=== PATIENT | male | born 1980 | race Caucasian/White ===

== ENCOUNTER 2017-06-29 14:49 | Emergency (ER) | payer OTHER ==
[~2017-06-29] VITALS: Ht 180.3 cm; Wt 83.9 kg
[2017-06-29] MEDS ORDERED: ASPIRIN 81 MG CHEW (CHILDREN'S ASA) PO ONE (15:00)
[2017-06-29] MEDS ORDERED: RX-NITROGLYCERIN 0.4 MG TAB BTL 25'S SL PRN (15:00)
[2017-06-29 15:21] LABS: BASOPHILS # (AUTO) 0.1 10^3/uL (0.0-0.1); BASOPHILS % (AUTO) 1 % (0-10); EOSINOPHILS # (AUTO) 0.7 10^3/uL (0.0-0.3); EOSINOPHILS % (AUTO) 8 % (0-10); LYMPHOCYTES # (AUTO) 2.2 X 10^3 (1.0-4.0); LYMPHOCYTES % (AUTO) 26 % (12-44); MEAN CORPUSCULAR HEMOGLOBIN 30 PG (25-34); MEAN CORPUSCULAR HGB CONC 34 G/DL (32-36); MEAN CORPUSCULAR VOLUME 88 FL (80-99); MEAN PLATELET VOLUME 9.7 FL (7.4-10.4); MONOCYTES # (AUTO) 0.6 X 10^3 (0.0-1.0); MONOCYTES % (AUTO) 7 % (0-12); NEUTROPHILS # (AUTO) 4.8 X 10^3 (1.8-7.8); NEUTROPHILS % (AUTO) 57 % (42-75); PLATELET COUNT 268 10^3/uL (130-400); RED BLOOD COUNT 4.96 10^6/uL (4.35-5.85); RED CELL DISTRIBUTION WIDTH 13.8 % (10.0-14.5); WHITE BLOOD COUNT 8.5 10^3/uL (4.3-11.0)
[2017-06-29 15:38] LABS: INR 0.9 (0.8-1.4); PROTHROMBIN TIME PATIENT 12.2 SEC (12.2-14.7)
--- NOTE | 2017-06-29 15:38 | Diagnostic Imaging Report ---
EXAMINATION: Portable upright radiograph of the chest. INDICATION: Chest pain. FINDINGS: The lungs are clear. The heart size is normal. No effusion or pneumothorax. The mediastinum and jessy appear unremarkable. IMPRESSION: Unremarkable exam. Dictated by: Dictated on workstation # [id number]
[2017-06-29 15:45] LABS: ALANINE AMINOTRANSFERASE 49 U/L (0-55); ALBUMIN 4.3 GM/DL (3.2-4.5); AMYLASE 51 U/L (25-125); ANION GAP 7 MMOL/L (5-14); ASPARTATE AMINO TRANSFERASE 25 U/L (5-34); BILIRUBIN,TOTAL 0.6 MG/DL (0.1-1.0); BLOOD UREA NITROGEN 17 MG/DL (7-18); BUN/CREATININE RATIO 15; CALCIUM 9.2 MG/DL (8.5-10.1); CARBON DIOXIDE 26 MMOL/L (21-32); CHLORIDE 107 MMOL/L (98-107); CREATININE SERUM 1.11 MG/DL (0.60-1.30); GFR ESTIMATED > 60; GLUCOSE 89 MG/DL (70-105); LIPASE 24 U/L (8-78); MAGNESIUM 2.1 MG/DL (1.8-2.4); SODIUM 140 MMOL/L (135-145); TOTAL PROTEIN 6.7 GM/DL (6.4-8.2)
[2017-06-29 15:52] LABS: MYOGLOBIN SERUM 60.1 NG/ML (10.0-92.0)
--- NOTE | 2017-06-29 15:52 | ED Chest Pain ---
General Chief Complaint: Chest Pain Stated Complaint: CHEST PAIN Nursing Triage Note: AMB TO ROOM C/O CHEST PAIN FOR 2 WEEKS REPORTS AT TIME PAIN GOES DOWN L ARM AND UP INTO NECK. Nursing Sepsis Screen: No Definite Risk Source: patient Exam Limitations: no limitations History of Present Illness Time seen by provider: 15:49 Initial Comments To ER with a two-week history of left-sided chest pain. The pain occasionally radiates to the left jaw, down left arm and even yesterday into the left leg. He denies any associated shortness of breath or palpitations. He states that his chest pain is constant nearly all the time but it does not seem to bother him at night. He cannot identify any exacerbating or alleviating factors. He denies any anxiety though he states he does become anxious when he thinks about his symptoms. He is a smoker about one pack per day for 15 years. He has a positive family history for cardiac disease stating that his father had his first coronary bypass at the age of 42 before ultimately dying after his third bypass. 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 He has no prior history of cardiac disease or symptoms. Timing/Duration: changing over time, intermittent Severity/Quality: moderate Location: central Activities at Onset: none ASA po SECURITY OPERATIONS MANAGER: No NTG SL SECURITY OPERATIONS MANAGER: No Associated Symptoms: No fatigue, No nausea/vomiting Allergies and Home Medications Allergies Coded Allergies: No Known Drug Allergies (Unverified , 06/29/17) Review of Systems Constitutional: see HPI, No diaphoresis, No dizziness, No fever EENTM: No Symptoms Reported Respiratory: No Symptoms Reported Cardiovascular: See HPI, Chest Pain Gastrointestinal: No Symptoms Reported Genitourinary: No Symptoms Reported Musculoskeletal: no symptoms reported Skin: no symptoms reported Psychiatric/Neurological: No Symptoms Reported Endocrine: No Symptoms Reported Past Hulcbpg-Tgvqdw-Bgntek Hx Patient Social History Alcohol Use: Occasionally Uses Recreational Drug Use: No Smoking Status: Current Everyday Smoker Recent Foreign Travel: No Contact w/Someone Who Travel: No Recent Infectious Disease Expo: No Physical Exam Vital Signs Vital Sign - Last 12Hours 06/29/17 14:49 Temp 97.5 Pulse 80 Resp 18 B/P (MAP) 136/77 Pulse Ox 96 O2 Delivery Room Air Capillary Refill : Less Than 3 Seconds General Appearance: No Apparent Distress, WD/WN HEENT: PERRL/EOMI, TMs Normal Neck: Full Range of Motion, Normal Inspection Respiratory: No Accessory Muscle Use, No Respiratory Distress Cardiovascular: Regular Rate, Rhythm, Normal Peripheral Pulses Gastrointestinal: Non Tender, Soft Extremity: Normal Capillary Refill, Normal Inspection Neurologic/Psychiatric: Alert, Oriented x3, No Motor/Sensory Deficits Skin: Normal Color, Warm/Dry Progress/Results/Core Measures Results/Orders Lab Results Laboratory Tests Test 06/29/17 15:07 06/29/17 18:03 Range/Units White Blood Count 8.5 4.3-11.0 10^3/uL Red Blood Count 4.96 4.35-5.85 10^6/uL Hemoglobin 14.9 13.3-17.7 G/DL Hematocrit 43 40-54 % Mean Corpuscular Volume 88 80-99 FL Mean Corpuscular Hemoglobin 30 25-34 PG Mean Corpuscular Hemoglobin Concent 34 32-36 G/DL Red Cell Distribution Width 13.8 10.0-14.5 % Platelet Count 268 130-400 10^3/uL Mean Platelet Volume 9.7 7.4-10.4 FL Neutrophils (%) (Auto) 57 42-75 % Lymphocytes (%) (Auto) 26 12-44 % Monocytes (%) (Auto) 7 0-12 % Eosinophils (%) (Auto) 8 0-10 % Basophils (%) (Auto) 1 0-10 % Neutrophils # (Auto) 4.8 1.8-7.8 X 10^3 Lymphocytes # (Auto) 2.2 1.0-4.0 X 10^3 Monocytes # (Auto) 0.6 0.0-1.0 X 10^3 Eosinophils # (Auto) 0.7 H 0.0-0.3 10^3/uL Basophils # (Auto) 0.1 0.0-0.1 10^3/uL Prothrombin Time 12.2 12.2-14.7 SEC INR Comment 0.9 0.8-1.4 Activated Partial Thromboplast Time 27 24-35 SEC D-Dimer < 0.27 0.00-0.49 UG/ML Sodium Level 140 135-145 MMOL/L Potassium Level 4.0 3.6-5.0 MMOL/L Chloride Level 107 98-107 MMOL/L Carbon Dioxide Level 26 21-32 MMOL/L Anion Gap 7 5-14 MMOL/L Blood Urea Nitrogen 17 7-18 MG/DL Creatinine 1.11 0.60-1.30 MG/DL Estimat Glomerular Filtration Rate > 60 BUN/Creatinine Ratio 15 Glucose Level 89 70-105 MG/DL Calcium Level 9.2 8.5-10.1 MG/DL Magnesium Level 2.1 1.8-2.4 MG/DL Total Bilirubin 0.6 0.1-1.0 MG/DL Aspartate Amino Transf (AST/SGOT) 25 5-34 U/L Alanine Aminotransferase (ALT/SGPT) 49 0-55 U/L Alkaline Phosphatase 77 40-136 U/L Myoglobin 60.1 10.0-92.0 NG/ML Troponin I < 0.30 < 0.30 <0.30 NG/ML Total Protein 6.7 6.4-8.2 GM/DL Albumin 4.3 3.2-4.5 GM/DL Amylase Level 51 25-125 U/L Lipase 24 8-78 U/L My Orders Orders - TRACY ZURITA APRN Ketorolac Injection (Toradol Injection) (06/29/17 16:15) Troponin I (06/29/17 17:59) Ekg Tracing (06/29/17 18:09) Medications Given in ED Current Medications Medications Dose Ordered Sig/Steven Route Start Time Stop Time Status Last Admin Dose Admin Aspirin 324 mg ONCE ONCE PO 06/29/17 15:00 06/29/17 15:01 DC 06/29/17 15:14 324 MG Ketorolac Tromethamine 30 mg ONCE ONCE IVP 06/29/17 16:15 06/29/17 16:16 DC 06/29/17 16:22 30 MG Vital Signs/I&O Vital Sign - Last 12Hours 06/29/17 06/29/17 14:49 17:32 Temp 97.5 Pulse 80 75 Resp 18 18 B/P (MAP) 136/77 120/81 Pulse Ox 96 98 O2 Delivery Room Air Room Air Blood Pressure Mean: 96 Diagnostic Imaging Diagonstic Imaging: Xray Plain Films/CT/US/NM/MRI: chest Comments NAME: TOÑO MEDEL [facility] REC#: [id number] PT STATUS: REG ER : 1980 PHYSICIAN: THO COMBS MD ADMIT DATE: 06/29/17/ER Draft Date of Exam:06/29/17 CHEST 1 VIEW, AP/PA ONLY EXAMINATION: Portable upright radiograph of the chest. INDICATION: Chest pain. FINDINGS: The lungs are clear. The heart size is normal. No effusion or pneumothorax. The mediastinum and jessy appear unremarkable. IMPRESSION: Unremarkable exam. Dictated on workstation # [id number] Dict: 06/29/17 1529 Trans: 06/29/17 1538 [id number] Interpreted by: AMOS NAJERA MD Electronically signed by: Departure Communication Progress Notes 1634-Discussed with Dr Mann. Will repeat a troponin at the 6 hour tico (this pain became worse today at around noon). Start him on a baby aspirin daily and beta leif. No current evidence of ACS so will defer further workup to the outpatient setting. Dr Mann would like see the patient tomorrow in clinic. Impression Impression: Primary Impression: Chest pain Qualified Codes: R07.9 - Chest pain, unspecified Disposition: 01 HOME, SELF-CARE Condition: Stable Departure-Patient Inst. Decision time for Depature: 18:49 Referrals: BABAK MANN MD [facility] NO,LOCAL PHYSICIAN (PCP) Primary Care Physician Patient Instructions: Chest Pain (DC) Add. Discharge Instructions: 1. Return to the emergency room for any concerns such as worsening or recurrent chest pain or shortness of breath 2. Call Dr. Mann's office tomorrow morning at 8 a.m. to make an appointment preferably to be seen tomorrow if they're able to do this. 3. Take a baby aspirin (81 mg) daily. All discharge instructions reviewed with patient and/or family. Voiced understanding. Scripts Metoprolol Succinate (Metoprolol Succinate) 25 Mg Tab.er.24h 25 MG PO DAILY, #14 TAB Prov: TRACY ZURITA APRN 06/29/17 Copy Copies To 1: BABAK MANN MD [facility] TRACY ZURITA APRN Jun 29, 2017 15:52
[2017-06-29] MEDS ORDERED: KETOROLAC 30 MG/ML VIAL IVP ONE (16:15)
[2017-06-29 17:32] VITALS: BP 120/81
[2017-06-29] MEDS ORDERED: METO-270 PO (18:50)
[2017-06-29 19:07] VITALS: BP 127/73
== END 2017-06-29 19:09 | disposition home or self-care (01) ==
LOC: ER 14:51
DX: R07.89 Other chest pain (principal); F17.200 Nicotine dependence, unspecified, uncomplicated
CPT/HCPCS: 36415; 71010; 80053; 82150; 83690; 83735; 83874; 84484; 85025; 85379; 85610; 85730; 93005; 93041; 96374

== ENCOUNTER → 2017-07-01 | Outpatient (CLI) | payer OTHER ==
[~2017-07-01] MED LIST: CATHETER FLUSH 10 ML SYR IV PRN; METO-387 PO
[2017-07-01 09:03] VITALS: BP 106/67
[2017-07-01 09:23] VITALS: BP 179/67
[2017-07-01 09:29] VITALS: BP 150/65
[2017-07-01 09:31] VITALS: BP 139/70
[2017-07-01 09:33] VITALS: BP 133/68
--- NOTE | 2017-07-02 08:48 | STRESS TEST ---
DATE OF SERVICE: 07/01/2017 RESTING AND POST-EXERCISE TECHNETIUM-[address] IMAGING: CLINICAL DIAGNOSIS: Chest discomfort. Baseline images were carried out after injection of 10.64 mCi technetium-99 Tetrofosmin. This was followed by exercise on a treadmill. Ovidio protocol was employed. He completed 9 minutes and 15 seconds of exercise in the Ovidio protocol. He attained 10.7 METS of workload and more than 90% of maximum predicted heart rate. At peak exercise, there is significant baseline artifact and the ST segments cannot be interpreted for ischemia. No significant arrhythmia was seen. Review of images at rest and following stress does not indicate any significant perfusion defects consistent with significant myocardial ischemia or infarction. Gated images show normal global left ventricular systolic function with normal regional wall motion. Left ventricular ejection fraction is calculated to be 58%. Left ventricular end diastolic volume is 74 mL. TID is absent (1.01). Some degree of diaphragmatic attenuation is seen during the imaging, both at rest and following exercise. CONCLUSIONS: 1. No evidence of any significant myocardial ischemia or infarction on this study. 2. Normal regional wall motion. 3. Normal global left ventricular systolic function with a calculated ejection fraction of 58%. Job ID: [id number] DocumentID: [id number] Dictated Date: 07/01/2017 13:01:33 [place] Date: 07/01/2017 15:19:55 Dictated By: BABAK CHANEY MD, MA, FACP, FACC,
== END ==
LOC: CARD 06:51
PROVIDERS: ATTEND Internal Medicine Cardiovascular Disease
DX: R07.89 Other chest pain (principal); Z82.49 Family history of ischemic heart disease and other diseases of the circulatory system
CPT/HCPCS: 78452; 93017; 93306

== ENCOUNTER → 2017-12-14 | Outpatient (CLI) | payer SELFPAY ==
[~2017-12-14] MED LIST changes: -CATHETER FLUSH 10 ML SYR IV PRN; +IOHEXOL 350 MG/ML 100 ML (OMNIPAQUE 350) VIAL IV ONE; +NS 100 ML (IVPB) BAG IV ONE
--- NOTE | 2017-12-14 08:22 | Diagnostic Imaging Report ---
PROCEDURE: CT neck soft tissue with contrast. TECHNIQUE: Multiple contiguous axial images were obtained through the neck after the administration of contrast. INDICATION: Dysphagia There are no prior studies available for comparison. There is no mass or adenopathy. There are few small subcentimeter nodes on each side of the neck. These are nonspecific. The parotid and submandibular glands are within normal limits. The thyroid gland is not enlarged and the gland seems to be homogeneous. The thyroid gland is partially obscured by streak artifact. The tracheal air shadow is not compressed or deviated. The images through the intracranial contents failed to show any sign of a mass or of an acute abnormality. There is mucosal thickening of both maxillary and ethmoid sinuses consistent with sinusitis. The lung apices are clear. The bone windows show no sign of a fracture or of a destructive lesion. IMPRESSION: 1. There is no mass or adenopathy identified and there is no sign of an acute abnormality. 2. There is bilateral maxillary and ethmoid sinusitis. Dictated by: Dictated on workstation # [id number]
== END ==
LOC: RAD 07:21
PROVIDERS: ATTEND Otolaryngology Otolaryngology/Facial Plastic Surgery
DX: J32.0 Chronic maxillary sinusitis (principal); J32.2 Chronic ethmoidal sinusitis; F45.8 Other somatoform disorders
CPT/HCPCS: 70491

== ENCOUNTER 2018-01-19 16:17 | Emergency (ER) | payer SELFPAY ==
[~2018-01-19] VITALS: Ht 180.3 cm; Wt 86.2 kg
[~2018-01-19 16:17] MED LIST changes: -IOHEXOL 350 MG/ML 100 ML (OMNIPAQUE 350) VIAL IV ONE; -NS 100 ML (IVPB) BAG IV ONE
[2018-01-19 17:10] LABS: BASOPHILS # (AUTO) 0.1 10^3/uL (0.0-0.1); BASOPHILS % (AUTO) 1 % (0-10); EOSINOPHILS # (AUTO) 0.2 10^3/uL (0.0-0.3); EOSINOPHILS % (AUTO) 2 % (0-10); HEMATOCRIT 45 % (40-54); HEMOGLOBIN 15.9 G/DL (13.3-17.7); LYMPHOCYTES % (AUTO) 22 % (12-44); MEAN CORPUSCULAR HEMOGLOBIN 31 PG (25-34); MEAN CORPUSCULAR HGB CONC 36 G/DL (32-36); MEAN CORPUSCULAR VOLUME 87 FL (80-99); MEAN PLATELET VOLUME 9.6 FL (7.4-10.4); MONOCYTES # (AUTO) 0.6 X 10^3 (0.0-1.0); MONOCYTES % (AUTO) 7 % (0-12); NEUTROPHILS # (AUTO) 6.4 X 10^3 (1.8-7.8); NEUTROPHILS % (AUTO) 69 % (42-75); PLATELET COUNT 272 10^3/uL (130-400); RED BLOOD COUNT 5.14 10^6/uL (4.35-5.85); RED CELL DISTRIBUTION WIDTH 13.5 % (10.0-14.5); WHITE BLOOD COUNT 9.3 10^3/uL (4.3-11.0)
[2018-01-19 17:11] LABS: BILIRUBIN,URINE NEGATIVE (NEGATIVE); CLARITY,URINE CLEAR; COLOR,URINE YELLOW; GLUCOSE, URINE (UA) NEGATIVE (NEGATIVE); KETONES,URINE NEGATIVE (NEGATIVE); LEUKOCYTE ESTERASE ,URINE NEGATIVE (NEGATIVE); NITRITE,URINE NEGATIVE (NEGATIVE); PH,URINE 6.5 (5-9); PROTEIN,URINE NEGATIVE (NEGATIVE); UROBILINOGEN,URINE NORMAL (NORMAL)
--- NOTE | 2018-01-19 17:14 | ED Abdominal Pain ---
General Chief Complaint: -Male Stated Complaint: GROIN PAIN;BLOOD IN STOOL Nursing Triage Note: pt reports l sided testicle pain since wednesday. pt denies any urinary s/s. pt also reports 2 epsiodes of bloody stools today. Sepsis Screen: No Definite Risk Source of Information: Patient Exam Limitations: No Limitations History of Present Illness Date Seen by Provider: Jan 19, 2018 Time Seen by Provider: 17:12 Initial Comments To ER with reports of left testicle pain constant but occasionally worse since Wednesday, today is Wednesday. No history of this. No injury to this. States it feels as though he's been "kicked in the balls" he states. He is also had 2 episodes of bright red bloody stools this evening without abdominal pain or rectal pain. No history of this. Severity/Quality: Moderate Radiation: No Radiation Allergies and Home Medications Allergies Coded Allergies: No Known Drug Allergies (Unverified , 06/29/17) Home Medications Metoprolol Succinate 25 Mg Tab.er.24h, 25 MG PO DAILY, #14 Prescribed by: TRACY ZURITA on 06/29/17 9700 Review of Systems Constitutional: see HPI, No chills, No fever EENTM: No Symptoms Reported Respiratory: No Symptoms Reported Cardiovascular: No Symptoms Reported Gastrointestinal: See HPI, Denies Abdominal Pain, Denies Constipated, Denies Diarrhea, Denies Nausea, Rectal Bleeding Genitourinary: See HPI Musculoskeletal: no symptoms reported Skin: no symptoms reported Psychiatric/Neurological: No Symptoms Reported Endocrine: No Symptoms Reported Hematologic/Lymphatic: No Symptoms Reported Past Wmjzkym-Sazdah-Tcgqdq Hx Patient Social History Alcohol Use: Rarely Uses Alcohol Beverage of Choice: Beer Recreational Drug Use: No Smoking Status: Former Smoker Type Used: Cigarettes Former Smoker, Quit: Dec 15, 2017 Recent Foreign Travel: No Contact w/Someone Who Travel: No Recent Infectious Disease Expo: No Physical Abuse: No Sexual Abuse: No Mistreated: No Fear: No Surgeries History of Surgeries: No Respiratory History of Respiratory Disorde: No Cardiovascular History of Cardiac Disorders: No Neurological History of Neurological Disord: No Genitourinary History of Genitourinary Disor: No Gastrointestinal History of Gastrointestinal Di: No Musculoskeletal History of Musculoskeletal Dis: No Endocrine History of Endocrine Disorders: No HEENT History of HEENT Disorders: No Cancer History of Cancer: No Psychosocial History of Psychiatric Problem: No Suicide Risk Score: 0 Integumentary History of Skin or Integumenta: No Physical Exam Vital Signs VS - Last 72 Hours, by Label 01/19/18 16:34 Temp 98.8 Pulse 94 Resp 18 B/P (MAP) 136/97 (110) Pulse Ox 96 Capillary Refill : Less Than 3 Seconds General Appearance: WD/WN, no apparent distress HEENT: PERRL/EOMI, normal ENT inspection Neck: non-tender, full range of motion Respiratory: no respiratory distress, no accessory muscle use Cardiovascular: regular rate, rhythm, no murmur Gastrointestinal: normal bowel sounds, non tender, soft Rectal: other (there is a bit of dried bright red blood at the anus. There is no visualized or tender hemorrhoid or anal fissure.) Genital/Rectal: other (genital exam reveals a normal-appearing scrotum without erythema or induration or ecchymosis. The testicles are equal in size without firmness. However, the left testicle is tender to palpation.) Extremities: normal range of motion, non-tender Neurologic/Psychiatric: alert, normal mood/affect, oriented x 3 Skin: normal color, warm/dry Progress/Results/Core Measures Results/Orders Lab Results Laboratory Tests Test 01/19/18 16:58 Range/Units White Blood Count 9.3 4.3-11.0 10^3/uL Red Blood Count 5.14 4.35-5.85 10^6/uL Hemoglobin 15.9 13.3-17.7 G/DL Hematocrit 45 40-54 % Mean Corpuscular Volume 87 80-99 FL Mean Corpuscular Hemoglobin 31 25-34 PG Mean Corpuscular Hemoglobin Concent 36 32-36 G/DL Red Cell Distribution Width 13.5 10.0-14.5 % Platelet Count 272 130-400 10^3/uL Mean Platelet Volume 9.6 7.4-10.4 FL Neutrophils (%) (Auto) 69 42-75 % Lymphocytes (%) (Auto) 22 12-44 % Monocytes (%) (Auto) 7 0-12 % Eosinophils (%) (Auto) 2 0-10 % Basophils (%) (Auto) 1 0-10 % Neutrophils # (Auto) 6.4 1.8-7.8 X 10^3 Lymphocytes # (Auto) 2.0 1.0-4.0 X 10^3 Monocytes # (Auto) 0.6 0.0-1.0 X 10^3 Eosinophils # (Auto) 0.2 0.0-0.3 10^3/uL Basophils # (Auto) 0.1 0.0-0.1 10^3/uL Urine Color YELLOW Urine Clarity CLEAR Urine pH 6.5 5-9 Urine Specific Grandin 1.010 L 1.016-1.022 Urine Protein NEGATIVE NEGATIVE Urine Glucose (UA) NEGATIVE NEGATIVE Urine Ketones NEGATIVE NEGATIVE Urine Nitrite NEGATIVE NEGATIVE Urine Bilirubin NEGATIVE NEGATIVE Urine Urobilinogen NORMAL NORMAL MG/DL Urine Leukocyte Esterase NEGATIVE NEGATIVE Urine RBC (Auto) NEGATIVE NEGATIVE Urine RBC NONE /HPF Urine WBC RARE /HPF Urine Crystals NONE /LPF Urine Bacteria NEGATIVE /HPF Urine Casts NONE /LPF Urine Mucus NEGATIVE /LPF Urine Culture Indicated NO Sodium Level 142 135-145 MMOL/L Potassium Level 3.9 3.6-5.0 MMOL/L Chloride Level 106 98-107 MMOL/L Carbon Dioxide Level 24 21-32 MMOL/L Anion Gap 12 5-14 MMOL/L Blood Urea Nitrogen 13 7-18 MG/DL Creatinine 1.20 0.60-1.30 MG/DL Estimat Glomerular Filtration Rate > 60 BUN/Creatinine Ratio 11 Glucose Level 90 70-105 MG/DL Calcium Level 9.7 8.5-10.1 MG/DL Total Bilirubin 0.7 0.1-1.0 MG/DL Aspartate Amino Transf (AST/SGOT) 32 5-34 U/L Alanine Aminotransferase (ALT/SGPT) 84 H 0-55 U/L Alkaline Phosphatase 67 40-136 U/L Total Protein 7.2 6.4-8.2 GM/DL Albumin 4.7 H 3.2-4.5 GM/DL My Orders Orders - TRACY ZURITA APRN Cbc With Automated Diff (01/19/18 16:55) Comprehensive Metabolic Panel (01/19/18 16:55) Ua Culture If Indicated (01/19/18 16:55) Saline Lock/Iv-Start (01/19/18 16:55) Ondansetron Injection (Zofran Injectio (01/19/18 17:15) Alprazolam Tablet (Xanax Tablet) (01/19/18 17:15) Us Scrotum (Testicle) [id number] (01/19/18 17:11) Iohexol Injection (Omnipaque 350 Mg/Ml 1 (01/19/18 18:00) Ns (Ivpb) (Sodium Chloride 0.9%) (01/19/18 18:00) Pharmacy Communication (Pharmacy Communi (01/19/18 17:46) Sodium Chloride Flush (Catheter Flush Sy (01/19/18 18:00) Ct Abdomen/Pelvis Wo (01/19/18 17:41) Medications Given in ED Current Medications Medications Dose Ordered Sig/Steven Route Start Time Stop Time Status Last Admin Dose Admin Alprazolam 0.25 mg ONCE ONCE PO 01/19/18 17:15 01/19/18 17:16 DC 01/19/18 17:29 0.25 MG Ondansetron HCl 4 mg ONCE ONCE IVP 01/19/18 17:15 01/19/18 17:16 DC 01/19/18 17:29 4 MG Vital Signs/I&O Vital Sign - Last 12Hours 01/19/18 16:34 Temp 98.8 Pulse 94 Resp 18 B/P (MAP) 136/97 (110) Pulse Ox 96 Blood Pressure Mean: 110 Diagnostic Imaging Diagonstic Imaging: Xray Plain Films/CT/US/NM/MRI: chest Comments NAME: ANA MEDEL MED REC#: [id number] PT STATUS: REG ER : 1980 PHYSICIAN: TRACY ZURITA APRN ADMIT DATE: 01/19/18/ER Draft Date of Exam:01/19/18 CT ABDOMEN/PELVIS WO PROCEDURE: CT abdomen and pelvis without contrast. TECHNIQUE: Multiple contiguous axial images were obtained through the abdomen and pelvis without the use of intravenous contrast. DATE: 01/19/2018. COMPARISON: None. INDICATION: 37-year-old male, blood in stool. Testicular pain. FINDINGS: There are limitations for evaluation of the abdominal organs, neoplastic processes, abscess, and limited evaluation of the vasculature relating to the lack of intravenous contrast. The visualized portions of the lung bases are clear. The heart is not enlarged. The liver is diffusely decreased in attenuation consistent with diffuse fatty infiltration of the liver. The outer liver contours are not grossly nodular. The gallbladder is grossly unremarkable in appearance. There is no intrahepatic or extrahepatic bile duct dilation. The main pancreatic duct is not dilated. Limited noncontrast evaluation of the pancreatic parenchyma is unremarkable. The spleen is not enlarged. The adrenal glands are unremarkable. Unremarkable appearance of the renal parenchyma. The urinary collecting systems are not distended. There is no identified renal or ureteral stone. There are pelvic calcifications that likely relate to phleboliths. The urinary bladder is unremarkable in appearance. The intestinal tract is not distended. The appendix is best seen on axial image 53 and adjacent sequential images. There is no evidence of acute appendicitis. There is a small fat-containing umbilical hernia. There is no free pelvic fluid. There is no drainable fluid collection. There is no free intraperitoneal air. There is no identified abnormally enlarged lymph node in the abdomen or pelvis which meets CT size criteria for adenopathy. There is no identified acute bony abnormality. IMPRESSION: CT ABDOMEN AND PELVIS. 1. No identified acute abnormality within the abdomen or pelvis. 2. Diffuse fatty infiltration of the liver. Dictated on workstation # [id number] Dict: 01/19/18 181 Trans: 01/19/181817 [id number] Interpreted by: KENA ZAYAS MD Electronically signed by: Departure Impression Impression: Primary Impression: Left testicular pain Additional Impression: History of rectal bleeding Disposition: HOME, SELF-CARE Condition: Stable Departure-Patient Inst. Decision time for Depature: 18:24 Referrals: [facility] [place] Primary Care Physician FORTUNATO WYNN BRETT D DO JENKINS, XAVIER M MD KIDO, TAKAAKI MD Patient Instructions: NO INSTRUCTIONS GIVEN Add. Discharge Instructions: 1. Call your family physician tomorrow to make an appointment to be seen this week. He'll also want to call the surgeons listed to schedule a colonoscopy to evaluate this rectal bleeding All discharge instructions reviewed with patient and/or family. Voiced understanding. TRACY ZURITA APRN Jan 19, 2018 17:14
[2018-01-19] MEDS ORDERED: ALPRAZolam 0.25 MG (XANAX) TAB PO ONE (17:15)
[2018-01-19] MEDS ORDERED: ONDANSETRON 4 MG/2 ML (SDV) Z0FRAN IVP ONE (17:15)
[2018-01-19 17:29] LABS: ALANINE AMINOTRANSFERASE 84 U/L (0-55); ALBUMIN 4.7 GM/DL (3.2-4.5); ALKALINE PHOSPHATASE 67 U/L (40-136); BILIRUBIN,TOTAL 0.7 MG/DL (0.1-1.0); BUN/CREATININE RATIO 11; CALCIUM 9.7 MG/DL (8.5-10.1); CARBON DIOXIDE 24 MMOL/L (21-32); CHLORIDE 106 MMOL/L (98-107); GFR ESTIMATED > 60; GLUCOSE 90 MG/DL (70-105); POTASSIUM 3.9 MMOL/L (3.6-5.0); SODIUM 142 MMOL/L (135-145); TOTAL PROTEIN 7.2 GM/DL (6.4-8.2)
--- NOTE | 2018-01-19 17:33 | Diagnostic Imaging Report ---
INDICATION: Left testicle pain. TECHNIQUE: Real-time grayscale sonographic imaging and color vascular evaluation of both testicles was performed. CORRELATION STUDY: None FINDINGS: RIGHT testicle measures 4.5 x 2.3 x 3.3 cm. LEFT testicle measures 4.8 x 2.1 x 2.7 cm. The testicles appear normal in echogenicity. No focal testicular mass demonstrated. There is vascular flow to the testicles. The epididymides appear unremarkable. IMPRESSION: 1. Unremarkable scrotal ultrasound examination. Dictated by: Dictated on workstation # [id number]
[2018-01-19 17:37] LABS: WBC,URINE RARE /HPF
[2018-01-19 17:38] LABS: BACTERIA,URINE NEGATIVE /HPF
[2018-01-19] MEDS ORDERED: NS 250 ML (IVPB) BAG IV ONE (18:00)
[2018-01-19] MEDS ORDERED: CATHETER FLUSH 10 ML SYR IV PRN (18:00)
[2018-01-19] MEDS ORDERED: IOHEXOL 350 MG/ML 100 ML (OMNIPAQUE 350) VIAL IV ONE (18:00)
--- NOTE | 2018-01-19 18:18 | Diagnostic Imaging Report ---
PROCEDURE: CT abdomen and pelvis without contrast. TECHNIQUE: Multiple contiguous axial images were obtained through the abdomen and pelvis without the use of intravenous contrast. DATE: 01/19/2018. COMPARISON: None. INDICATION: 37-year-old male, blood in stool. Testicular pain. FINDINGS: There are limitations for evaluation of the abdominal organs, neoplastic processes, abscess, and limited evaluation of the vasculature relating to the lack of intravenous contrast. The visualized portions of the lung bases are clear. The heart is not enlarged. The liver is diffusely decreased in attenuation consistent with diffuse fatty infiltration of the liver. The outer liver contours are not grossly nodular. The gallbladder is grossly unremarkable in appearance. There is no intrahepatic or extrahepatic bile duct dilation. The main pancreatic duct is not dilated. Limited noncontrast evaluation of the pancreatic parenchyma is unremarkable. The spleen is not enlarged. The adrenal glands are unremarkable. Unremarkable appearance of the renal parenchyma. The urinary collecting systems are not distended. There is no identified renal or ureteral stone. There are pelvic calcifications that likely relate to phleboliths. The urinary bladder is unremarkable in appearance. The intestinal tract is not distended. The appendix is best seen on axial image 53 and adjacent sequential images. There is no evidence of acute appendicitis. There is a small fat-containing umbilical hernia. There is no free pelvic fluid. There is no drainable fluid collection. There is no free intraperitoneal air. There is no identified abnormally enlarged lymph node in the abdomen or pelvis which meets CT size criteria for adenopathy. There is no identified acute bony abnormality. IMPRESSION: CT ABDOMEN AND PELVIS. 1. No identified acute abnormality within the abdomen or pelvis. 2. Diffuse fatty infiltration of the liver. Dictated by: Dictated on workstation # [id number]
[2018-01-19 18:42] VITALS: BP 132/85
== END 2018-01-19 18:42 | disposition home or self-care (01) ==
LOC: EDUNIT# 16:17 → ER 16:18
DX: N50.812 Left testicular pain (principal); Z87.19 Personal history of other diseases of the digestive system; Z87.891 Personal history of nicotine dependence
CPT/HCPCS: 36415; 74176; 76870; 80053; 81000; 85025; 96374

== ENCOUNTER → 2018-02-11 | Outpatient (CLI) | payer OTHER ==
--- NOTE | 2018-02-11 08:37 | Diagnostic Imaging Report ---
EXAM: RIGHT UPPER QUADRANT ULTRASOUND DATE: 02/11/2018. COMPARISON: CT abdomen and pelvis January 19, 2018. INDICATION: 37-year-old male, right upper quadrant pain. PROCEDURE: Two-dimensional grayscale and color doppler ultrasound examination of the right upper quadrant is performed. FINDINGS: Liver: The liver is diffusely increased in echogenicity consistent with diffuse fatty infiltration of the liver. There is no sonographically demonstrated solid or cystic liver mass. The outer liver contours are not grossly nodular. Bile ducts and gallbladder: There is no pericholecystic fluid, gallbladder wall thickening or gallstones. The gallbladder wall measures 0.2 cm. There is no intrahepatic or extrahepatic biliary ductal dilation. The common bile duct measures 0.5 cm. Right kidney: Unremarkable right kidney. No hydronephrosis. The right kidney measures 10.2 cm x 4.3 cm x 5.4 cm. Pancreas: Limited visualized portions of the pancreas are unremarkable. Images were provided of the right lower quadrant without demonstration of the appendix. IMPRESSION: 1. Diffuse fatty infiltration of the liver. 2. No evidence of cholelithiasis or acute cholecystitis. 3. Images were provided of the right lower quadrant without demonstration of the appendix. Dictated by: Dictated on workstation # [id number]
== END ==
LOC: RAD 07:36
PROVIDERS: ATTEND Surgery
DX: K76.0 Fatty (change of) liver, not elsewhere classified (principal)
CPT/HCPCS: 76705

== ENCOUNTER → 2018-02-18 | Outpatient (CLI) | payer OTHER ==
[~2018-02-18] MED LIST changes: +CATHETER FLUSH 10 ML SYR IV PRN
--- NOTE | 2018-02-18 12:49 | Diagnostic Imaging Report ---
INDICATION: Right upper quadrant pain. TECHNIQUE: The patient was administered 5.1 mCi technetium 99m Choletec and imaging over the abdomen was performed. Next, the patient was administered one can of Ensure after 60 minutes and a gallbladder ejection fraction was calculated. FINDINGS: There is homogeneous uptake of activity throughout the liver. Prompt excretion of activity into the gallbladder and common bile duct are identified. There is passage of activity into the small bowel. Gallbladder ejection fraction is slightly low at 28%. Normal values are 35% or greater. IMPRESSION: 1. No evidence of cystic duct or common bile duct obstruction. 2. Low gallbladder ejection fraction of 28%. This can be seen with chronic cholecystitis versus gallbladder dyskinesia. Dictated by: Dictated on workstation # [id number]
== END ==
LOC: CARD 08:10
PROVIDERS: ATTEND Surgery
DX: R10.11 Right upper quadrant pain (principal)
CPT/HCPCS: 78227

== ENCOUNTER 2018-02-28 05:53 | Outpatient (CLI) | payer SELFPAY ==
[~2018-02-28] VITALS: Ht 180.3 cm; Wt 86.2 kg
[~2018-02-28 05:53] MED LIST changes: -CATHETER FLUSH 10 ML SYR IV PRN
[2018-02-28] MEDS ORDERED: RANI75TA21 PO (13:01)
== END 2018-02-28 13:03 ==
LOC: PREOP 05:53
PROVIDERS: ATTEND Surgery
DX: Z01.818 Encounter for other preprocedural examination (principal); K62.5 Hemorrhage of anus and rectum

== ENCOUNTER 2018-03-07 11:30 | Day surgery (SDC) | payer OTHER ==
[~2018-03-07] VITALS: Ht 180.3 cm; Wt 86.2 kg
[~2018-03-07 11:30] MED LIST changes: +RANI75TA21 PO
[2018-03-07] MEDS ORDERED: LACTATED RINGERS 1,000 ML IV STA (11:57)
[2018-03-07] MEDS ORDERED: BENZOCAINE 20% SPRAY (HURRICANE) 60 ML CAN MT PRN (12:00)
[2018-03-07] MEDS ORDERED: LACTATED RINGERS 1,000 ML IV ONE ×3 (12:03→13:45)
[2018-03-07 12:25] VITALS: BP 116/82
--- NOTE | 2018-03-07 13:21 | Progress Note-Pre Operative ---
Pre-Operative Progress Note H&P Reviewed The H&P was reviewed, patient examined and no changes noted. Time Seen by Provider: 13:16 Date H&P Reviewed: Mar 07, 2018 Time H&P Reviewed: 13:15 Pre-Operative Diagnosis: Rectal bleed, gastritis FORTUNATO WYNN DO Mar 07, 2018 13:21
[2018-03-07] MEDS ORDERED: PROPOFOL INJECTION 50 ML IV ONE (13:36)
[2018-03-07] MEDS ORDERED: proPOfol 200 MG/20 ML (DIPRIVAN) VIAL IV ONE (14:01)
--- NOTE | 2018-03-07 14:21 | Progress Note-Post Operative ---
Post-Operative Progess Note Surgeon (s)/Ophthalmic Technician Apprentice (s) Surgeon FORTUNATO WYNN DO Ophthalmic Technician Apprentice: none Pre-Operative Diagnosis Rectal bleed, gastritis Post-Operative Diagnosis Duodenitis Gastritis ?? Carey's esophagus Internal Hemorrhoids Procedure & Operative Findings Date of Procedure 03/07/18 Procedure Performed/Findings EGD with bx colonoscopy Anesthesia Type IV Sedation by HEAVY MACHINERY OPERATOR Estimated Blood Loss Estimated blood loss (mL): scant Specimens/Packing Specimens Removed duodenal bx antral bx Esophageal bx FORTUNATO WYNN DO Mar 07, 2018 14:21
--- NOTE | 2018-03-07 14:22 | Endoscopy Discharge Instruct ---
Endo Procedure/Findings Findings 1.: Gastritis 2.: Other Findings (duodenitis) 3.: Carey's Esophagus 4.: Internal Hemorrhoids Discharge Instructions - Activity: You might feel a little sleepy until tomorrow. This is due to the medicine you received to relax you. Until tomorrow, you should: NOT drive a car, operate machinery or power tools. NOT drink any alcoholic beverages. NOT make any important decisions or sign importortant papers. Do not return to work until tomorrow, unless otherwise instructed. Resume previous activities tomorrow. Diet: Start by taking liquids. If you tolerate liquids, advance to solid food. Notify Physician - If you experience excessive bleeding, unusual abdominal pain, fever, or chest pain, contact your doctor immediately. Follow-Up: - I have received and understand the above instructions and will call my doctor if I have any further questions. Patient Signature Date Nurse Signature Other (Relationship) FORTUNATO WYNN DO Mar 07, 2018 14:22
[2018-03-07] MEDS ORDERED: DEXAMETHASONE 10 MG/ML (DECADRON) 1 ML VIAL ONE (14:33)
[2018-03-07 14:40] VITALS: BP 108/74
--- NOTE | 2018-03-07 14:49 | Anesthesia-General Post-Op ---
MAC Patient Condition Mental Status/LOC: Same as Preop Cardiovascular: Satisfactory Nausea/Vomiting: Present (nausea on admission- antiemetic given as discussed with surgeon) Respiratory: Satisfactory Pain: Controlled Complications: Absent Post Op Complications Complications None Follow Up Care/Instructions Patient Instructions None needed. Anesthesiology Discharge Order Discharge Order Patient is doing well, no complaints, stable vital signs, no apparent adverse anesthesia problems. No complications reported per nursing. RITA ANG CRNA Mar 07, 2018 14:49
[2018-03-07 15:10] VITALS: BP 117/66
[2018-03-07 15:25] VITALS: BP 117/66
--- NOTE | 2018-03-07 22:32 | OPERATIVE REPORT ---
DATE OF SERVICE: PREOPERATIVE DIAGNOSES: 1. Gastritis. 2. Gastrointestinal bleed. POSTOPERATIVE DIAGNOSES: 1. Duodenitis. 2. Gastritis. 3. Esophagitis. 4. Internal hemorrhoids. PROCEDURES: 1. EGD with biopsy. 2. Colonoscopy. SURGEON: Dr. Norris. CANS VACUUM TESTER: None. ANESTHESIA: IV sedation by INDUSTRIAL PROPERTY APPRAISER. BLOOD LOSS: Scant. SPECIMEN: One biopsy from duodenum, one biopsy from antrum and one biopsy from the esophagus. FLUIDS: Per anesthesia. POSTOPERATIVE CONDITION: Stable. INDICATION FOR PROCEDURE: The patient is a 37-year-old male who has been having some abdominal pain, possibly rectal bleeding and symptoms that are similar for gastritis, needed EGD and colonoscopy. FINDINGS: The patient had some duodenitis, some gastritis and what looked like esophagitis, possibly Carey's esophagus. He also had some internal hemorrhoids with no other obvious pathology. PROCEDURE NOTE: After informed consent was obtained, the patient was brought to the endoscopy suite, placed in the bed in the left lateral decubitus position. He was administered IV sedation by the INDUSTRIAL PROPERTY APPRAISER. Then, started with the EGD. Inserted the scope down the mouth into the esophagus and down into the stomach, pushed into the first portion of the duodenum, appeared to be some erythema, took picture of this and then did a biopsy, pulled back into the stomach into the antrum, saw some more redness. Again, did another biopsy here and then retroflexed to look up at the cardia, did not really see any hiatal hernia at this point, then pulled back into the esophagus, did look like there was some creeping up of the Z line possibly early Carey's esophagus and did a biopsy in the esophagus and then up for the esophagus looked fine, pulled the scope up. Switched scopes, switched gloves, and then started the colonoscopy, inserted the scope, pushed all the way to 150 cm, able to get to the cecum, took a picture of appendiceal orifice and then able to get into the terminal ileum. Terminal ileum looked fine. Took a picture and then slowly withdrew the scope insufflating looked circumferentially at the colorado looking at the cecum up the ascending colon to the hepatic flexure, then down to transverse colon, the splenic flexure, into the descending colon and then down the sigmoid and finally into the rectum, retroflexed in the rectal vault, saw some internal hemorrhoids, took a picture of this and then removed the scope. The patient tolerated the procedure well and he was recovered in the endoscopy suite. Job ID: [id number] DocumentID: [id number] Dictated Date: 03/07/2018 15:48:49 Routing Machine Operator Date: 03/07/2018 22:31:51 Dictated By: FORTUNATO NORRIS DO
== END 2018-03-07 15:30 | disposition home or self-care (01) ==
LOC: ENDO 11:30
PROVIDERS: ATTEND Surgery
DX: K29.80 Duodenitis without bleeding (principal); K29.70 Gastritis, unspecified, without bleeding; K20.9 Esophagitis, unspecified; K64.8 Other hemorrhoids; F17.210 Nicotine dependence, cigarettes, uncomplicated

== ENCOUNTER 2018-08-26 05:34 | Outpatient (CLI) | payer OTHER ==
[~2018-08-26] VITALS: Ht 180.3 cm; Wt 86.2 kg
[2018-08-26] MEDS ORDERED: LORA1TAB59 PO (11:29)
[2018-08-29] MEDS ORDERED: ACHD5005 PO (12:24)
== END 2018-08-26 11:42 | disposition home or self-care (01) ==
LOC: PREOP 05:34
PROVIDERS: ATTEND Surgery
DX: Z01.818 Encounter for other preprocedural examination (principal)

== ENCOUNTER 2018-08-29 08:58 | Day surgery (SDC) | payer OTHER ==
[~2018-08-29] VITALS: Ht 180.3 cm; Wt 86.2 kg
[~2018-08-29 08:58] MED LIST changes: +LORA1TAB59 PO
[2018-08-29 09:08] VITALS: BP 128/85
[2018-08-29] MEDS ORDERED: MIDAZOLAM 2 MG/2 ML (VERSED) VIAL ONE (09:37)
[2018-08-29] MEDS ORDERED: FAMOTIDINE 20MG/2ML IV (PEPCID) ONE (09:37)
[2018-08-29] MEDS ORDERED: CATHETER FLUSH 10 ML SYR IV PRN (09:45)
[2018-08-29] MEDS ORDERED: ceFAZolin 2 GM IV Premixed 50 ML IV ONE (09:45)
[2018-08-29] MEDS ORDERED: FAMOTIDINE 20MG/2ML IV (PEPCID) IV ONE (10:00)
[2018-08-29] MEDS ORDERED: SCOPOLAMINE 1.5 MG (TRANSDERM-SCOP) PATCH TOP ONE (10:00)
[2018-08-29] MEDS ORDERED: MIDAZOLAM 2 MG/2 ML (VERSED) VIAL IV ONE (10:00)
[2018-08-29] MEDS: LACTATED RINGERS 1,000 ML IV PRN ×3 (10:05→13:21)
[2018-08-29 10:17] LABS: BASOPHILS % (AUTO) 1 % (0-10); EOSINOPHILS # (AUTO) 0.3 10^3/uL (0.0-0.3); EOSINOPHILS % (AUTO) 5 % (0-10); HEMATOCRIT 42 % (40-54); HEMOGLOBIN 14.7 G/DL (13.3-17.7); LYMPHOCYTES # (AUTO) 1.4 X 10^3 (1.0-4.0); LYMPHOCYTES % (AUTO) 24 % (12-44); MEAN CORPUSCULAR HEMOGLOBIN 30 PG (25-34); MEAN CORPUSCULAR HGB CONC 35 G/DL (32-36); MEAN CORPUSCULAR VOLUME 86 FL (80-99); MEAN PLATELET VOLUME 9.5 FL (7.4-10.4); MONOCYTES # (AUTO) 0.5 X 10^3 (0.0-1.0); MONOCYTES % (AUTO) 8 % (0-12); NEUTROPHILS # (AUTO) 3.9 X 10^3 (1.8-7.8); NEUTROPHILS % (AUTO) 63 % (42-75); PLATELET COUNT 239 10^3/uL (130-400); RED BLOOD COUNT 4.89 10^6/uL (4.35-5.85); WHITE BLOOD COUNT 6.1 10^3/uL (4.3-11.0)
[2018-08-29] MEDS ORDERED: LIDOCAINE/EPI 1%-1:200,000 (XYLOCAINE) 10 ML VIAL ONE (10:39)
--- OUTSIDE RECORDS SUMMARY | 2018-08-29 10:39 | XMS REPORT ---
Author Author OSBALDO GUAMAN [facility] Address [address] [place] [address] Care Team Providers Care Bowling Ball Mold Assembler Name Role Phone OSBALDO GUAMAN Unavailable PROBLEMS Type Condition ICD9-CM Code IOH13-SS Code Onset Dates Condition Status SNOMED Code Problem Hypertension, unspecified type I10 Active 11451308 ALLERGIES No Known Allergies ENCOUNTERS Encounter Location Date Diagnosis [address] [id number] [id number] Jan, Hypertension, unspecified type I10 [facility] [address] [id number] [id number] Jan, [address] [id number] [id number] Jan, Elevated liver enzymes R74.8 [address] [id number] Jan, Elevated liver enzymes R74.[address] [id number][place] [id number] Jan, Rectal bleeding K62.5 and Testicular pain, left N50.[address] [id number], [place] [id number] Oct, Sore throat J02.9 ; Tobacco abuse Z72.0 ; Tobacco abuse counseling Z71.6 and Tonsillitis J03.[address] [id number][place] [id number] Oct, Strep throat J02.0 [facility] [address], [place] [address] Sep, [facility] [address] [id number] [address] 10 Sep, 2009 [facility] [address] [facility] [id number] [place] [address] Feb, IMMUNIZATIONS No Known Immunizations SOCIAL HISTORY Never Assessed REASON FOR VISIT ER follow up. Had blood in stool and pain in left testicle. 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
--- OUTSIDE RECORDS SUMMARY | 2018-08-29 10:39 | XMS REPORT ---
Author Author OSBALDO GUAMAN [facility] Address [address] [place] [address] Care Team Providers Care Epic Interface Analyst Name Role Phone OSBALDO GUAMAN Unavailable PROBLEMS Type Condition ICD9-CM Code THU01-IX Code Onset Dates Condition Status SNOMED Code Problem Hypertension, unspecified type I10 Active 94526831 ALLERGIES No Information ENCOUNTERS Encounter Location Date Diagnosis [address] [id number] Jan, Hypertension, unspecified type I10 [facility] [address] [id number] [id number] Jan, [address] [place] [id number] Jan, Elevated liver enzymes R74.8 [address]100[place] [id number] Jan, Elevated liver enzymes R74.[address] [id number] LAKE[place] [id number] Jan, Rectal bleeding K62.5 and Testicular pain, left N50.812 [address]100[place] [id number] Oct, Sore throat J02.9 ; Tobacco abuse Z72.0 ; Tobacco abuse counseling Z71.6 and Tonsillitis J03.[address] [id number] [place] [id number] Oct, Strep throat J02.0 [facility] [place] [address]00565100[place], [place] [address] Sep, [facility] [place] [id number] [place] [address], [place] [address] Sep, [facility] [place] [address] [facility] [id number][place] [address] Feb, IMMUNIZATIONS No Known Immunizations SOCIAL HISTORY Never Assessed REASON FOR VISIT PLAN OF CARE VITAL SIGNS MEDICATIONS Unknown Medications RESULTS No Results PROCEDURES No Known procedures INSTRUCTIONS MEDICATIONS ADMINISTERED No Known Medications
--- OUTSIDE RECORDS SUMMARY | 2018-08-29 10:39 | XMS REPORT ---
Author Author OSBALDO GUAMAN [facility] Address [address] [place] [address] Care Team Providers Care Mink Rancher Name Role Phone OSBALDO GUAMAN Unavailable PROBLEMS Type Condition ICD9-CM Code CXH46-RW Code Onset Dates Condition Status SNOMED Code Problem Hypertension, unspecified type I10 Active 94908228 ALLERGIES No Information ENCOUNTERS Encounter Location Date Diagnosis [address]65100[place] [id number] Jan, Hypertension, unspecified type I10 [facility] [address] [id number] [id number] Jan, [address] [place] [id number] Jan, Elevated liver enzymes R74.8 [address]65100[place] [id number] Jan, Elevated liver enzymes R74.[address] [id number][place] [id number] Jan, Rectal bleeding K62.5 and Testicular pain, left N50.812 [address]65100[place] [id number] Oct, Sore throat J02.9 ; Tobacco abuse Z72.0 ; Tobacco abuse counseling Z71.6 and Tonsillitis J03.[address] [id number], [place] [id number] Oct, Strep throat J02.0 [facility] [address]00565100[place], [place] [address] Sep, [facility] [id number] [place] [address], [place] [address] Sep, [facility] [address] [facility] [id number] [place] [address] Feb, IMMUNIZATIONS No Known Immunizations SOCIAL HISTORY Never Assessed REASON FOR VISIT Blood pressure check PLAN OF CARE VITAL SIGNS Height 71 in 2018-02-25 Blood pressure systolic 120 mmHg 2018-02-25 Blood pressure diastolic 82 mmHg 2018-02-25 MEDICATIONS Unknown Medications RESULTS No Results PROCEDURES No Known procedures INSTRUCTIONS MEDICATIONS ADMINISTERED No Known Medications
--- OUTSIDE RECORDS SUMMARY | 2018-08-29 10:39 | XMS REPORT ---
Author Author OSBALDO GUAMAN [facility] Address [address] [place] [address] Care Team Providers Care Carton Forming Machine Tender Name Role Phone OSBALDO GUAMAN Unavailable PROBLEMS Type Condition ICD9-CM Code DJF76-SJ Code Onset Dates Condition Status SNOMED Code Problem Hypertension, unspecified type I10 Active 63361219 ALLERGIES No Known Allergies ENCOUNTERS Encounter Location Date Diagnosis [address] [id number], [place] [id number] Jan, Hypertension, unspecified type I10 [facility] [address] [id number] [id number] Jan, [address] [id number], [place] [id number] Jan, Elevated liver enzymes R74.8 [address]00565100[place], [place] [id number] Jan, Elevated liver enzymes R74.[address] [id number], [place] [id number] Jan, Rectal bleeding K62.5 and Testicular pain, left N50.[address] [id number], [place] [id number] Oct, Sore throat J02.9 ; Tobacco abuse Z72.0 ; Tobacco abuse counseling Z71.6 and Tonsillitis J03.[address] [id number], [place] [id number] Oct, Strep throat J02.0 [facility] [address]00565100[place] [address] Sep, [facility] [address] [id number] [address] 10 Sep, 2009 [facility] [address] [facility] [id number] [place] [address] Feb, IMMUNIZATIONS No Known Immunizations SOCIAL HISTORY Never Assessed REASON FOR VISIT having trouble swallowing for hte past 3 weeks or so. Feels like there is a lump in his throat. 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 PLAN OF CARE Activity Details Follow Up prn Reason: VITAL SIGNS Height 71 in 2017-11-12 Weight 199.0 lbs 2017-11-12 Temperature 97.9 degrees Fahrenheit 2017-11-12 Heart Rate 83 bpm 2017-11-12 Respiratory Rate 17 2017-11-12 BMI 27.75 kg/m2 2017-11-12 Blood pressure systolic 118 mmHg 2017-11-12 Blood pressure diastolic 70 mmHg 2017-11-12 MEDICATIONS Medication Instructions Dosage Frequency Start Date End Date Duration Status Amoxicillin 875 MG Orally every 12 hrs 1 tablet 12h Oct, Oct, 10 day(s) Active RESULTS No Results PROCEDURES No Known procedures INSTRUCTIONS MEDICATIONS ADMINISTERED No Known Medications
--- OUTSIDE RECORDS SUMMARY | 2018-08-29 10:39 | XMS REPORT ---
Author Author OSBALDO GUAMAN [facility] Address [address] [place] [address] Care Team Providers Care Automation Lead Name Role Phone OSBALDO GUAMAN Unavailable PROBLEMS Type Condition ICD9-CM Code RNX19-EK Code Onset Dates Condition Status SNOMED Code Problem Hypertension, unspecified type I10 Active 20739606 ALLERGIES No Information ENCOUNTERS Encounter Location Date Diagnosis [address]00565100[place], [place] [id number] Jan, Hypertension, unspecified type I10 [facility] [address] [id number], [place] [id number] Jan, [address] [place] [id number] Jan, Elevated liver enzymes R74.8 [address]00565100[place], [place] [id number] Jan, Elevated liver enzymes R74.[address] [id number], [place] [id number] Jan, Rectal bleeding K62.5 and Testicular pain, left N50.812 [address]00565100[place], [place] [id number] Oct, Sore throat J02.9 ; Tobacco abuse Z72.0 ; Tobacco abuse counseling Z71.6 and Tonsillitis J03.[address] [id number], [place] [id number] Oct, Strep throat J02.0 [facility] [address]00565100[place], [place] [address] Sep, [facility] [id number] [place] [address], [place] [address] Sep, [facility] [address] [facility] [id number], [place] [address] Feb, IMMUNIZATIONS No Known Immunizations SOCIAL HISTORY Never Assessed REASON FOR VISIT Er records. defer labs PLAN OF CARE VITAL SIGNS MEDICATIONS Unknown Medications RESULTS No Results PROCEDURES No Known procedures INSTRUCTIONS MEDICATIONS ADMINISTERED No Known Medications
--- OUTSIDE RECORDS SUMMARY | 2018-08-29 10:39 | XMS REPORT ---
Author Author OSBADLO GUAMAN [facility] Address [address] [place] [address] Care Team Providers Care Patternmaker Plastics Name Role Phone OSBALDO GUAMAN Unavailable PROBLEMS Type Condition ICD9-CM Code TBX17-MA Code Onset Dates Condition Status SNOMED Code Problem Hypertension, unspecified type I10 Active 76140244 ALLERGIES No Known Allergies ENCOUNTERS Encounter Location Date Diagnosis [address] [id number], [place] [id number] Jan, Hypertension, unspecified type I10 [facility] [address] [id number] [id number] Jan, [address] [id number], [place] [id number] Jan, Elevated liver enzymes R74.8 [address]00565100[place], [place] [id number] Jan, Elevated liver enzymes R74.[address] [id number], [place] [id number] Jan, Rectal bleeding K62.5 and Testicular pain, left N50.[address] [id number], [place] [id number] Oct, Sore throat J02.9 ; Tobacco abuse Z72.0 ; Tobacco abuse counseling Z71.6 and Tonsillitis J03.[address] [id number], [place] [id number] Oct, Strep throat J02.0 [facility] [address]00565100[place], [place] [address] Sep, [facility] [address] [id number] [address] 10 Sep, 2009 [facility] [address] [facility] [id number] [place] [address] Feb, IMMUNIZATIONS Vaccine Route Administration Date Status SOLUMEDROL (UP TO 125 MG) IM Intramuscular Nov 25, 2017 Administered SOCIAL HISTORY Never Assessed REASON FOR VISIT sore throat, was seen about a week ago and finished ABX, states he does not feel any better. [facility] PLAN OF CARE Activity Details Follow Up next avaliable Reason:EST care Pending Test CULTURE, AEROBIC VITAL SIGNS Height 71 in 2017-11-25 Weight 200.5 lbs 2017-11-25 Temperature 97.9 degrees Fahrenheit 2017-11-25 Heart Rate 107 bpm 2017-11-25 Respiratory Rate 18 2017-11-25 BMI 27.96 kg/m2 2017-11-25 Blood pressure systolic 128 mmHg 2017-11-25 Blood pressure diastolic 88 mmHg 2017-11-25 MEDICATIONS Unknown Medications RESULTS No Results PROCEDURES Procedure Date Ordered Result Body Site CULTURE, BACTERIA, OTHER Nov 25, 2017 SOLUMEDROL (UP TO 125 MG) Nov 25, 2017 THER/PROPH/DIAG INJ, SC/IM Nov 25, 2017 INSTRUCTIONS MEDICATIONS ADMINISTERED No Known Medications
--- OUTSIDE RECORDS SUMMARY | 2018-08-29 10:39 | XMS REPORT ---
Author Author OSBALDO GUAMAN [facility] Address [address] [place] [address] Care Team Providers Care Fisher Oyster Name Role Phone OSBALDO GUAMAN Unavailable PROBLEMS Type Condition ICD9-CM Code UIF60-DL Code Onset Dates Condition Status SNOMED Code Problem Hypertension, unspecified type I10 Active 66269529 ALLERGIES No Information ENCOUNTERS Encounter Location Date Diagnosis [address]00565100[place], [place] [id number] Jan, Hypertension, unspecified type I10 [facility] [address] [id number] [id number] Jan, [address] [place] [id number] Jan, Elevated liver enzymes R74.8 [address]00565100[place], [place] [id number] Jan, Elevated liver enzymes R74.[address] [id number], [place] [id number] Jan, Rectal bleeding K62.5 and Testicular pain, left N50.812 [address]00565100[place], [place] [id number] Oct, Sore throat J02.9 ; Tobacco abuse Z72.0 ; Tobacco abuse counseling Z71.6 and Tonsillitis J03.[address] [id number], [place] [id number] Oct, Strep throat J02.0 [facility] [address]00565100[place], [place] [address] Sep, [facility] [id number] [place] [address], [place] [address] 10 Sep, 2009 [facility] [address] [facility] [id number] [address] 14 Feb, 2009 IMMUNIZATIONS No Known Immunizations SOCIAL HISTORY Never Assessed REASON FOR VISIT Lab (walk-in) PLAN OF CARE VITAL SIGNS MEDICATIONS Unknown Medications RESULTS No Results PROCEDURES Procedure Date Ordered Result Body Site LIPID PANEL February 01, 2018 COMPREHEN METABOLIC PANEL February 01, 2018 COMPLETE CBC W/AUTO DIFF WBC February 01, 2018 ASSAY OF GGT February 01, 2018 VENIPUNCT, ROUTINE* February 01, 2018 INSTRUCTIONS MEDICATIONS ADMINISTERED No Known Medications
[2018-08-29] MEDS ORDERED: RANI75TA21 PO (10:49)
[2018-08-29] MEDS ORDERED: fentaNYL INJECTION 100 MCG/2 ML AMP ONE (11:00)
[2018-08-29] MEDS ORDERED: ONDANSETRON 4 MG/2 ML (SDV) Z0FRAN ONE (11:00)
[2018-08-29] MEDS ORDERED: ROCURONIUM 10 MG/ML 5 ML SYRINGE IV ONE (11:00)
[2018-08-29] MEDS ORDERED: LACTATED RINGERS 0 ML IV ONE (11:00)
[2018-08-29] MEDS ORDERED: proPOfol 200 MG/20 ML (DIPRIVAN) VIAL IV ONE (11:00)
[2018-08-29] MEDS ORDERED: LIDOCAINE PF 2% 2 ML (XYLOCAINE) VIAL ONE ×2 (11:00→11:01)
[2018-08-29] MEDS ORDERED: MIDAZOLAM 10 MG/2 ML (VERSED) VIAL ONE (11:01)
[2018-08-29] MEDS ORDERED: SEVOFLURANE (ULTANE) 15 ML INHAL SOLN ONE ×5 (11:05→12:30)
--- NOTE | 2018-08-29 11:27 | Progress Note-Pre Operative ---
Pre-Operative Progress Note H&P Reviewed The H&P was reviewed, patient examined and no changes noted. Time Seen by Provider: 11:23 Date H&P Reviewed: Aug 29, 2018 Time H&P Reviewed: 11:25 Pre-Operative Diagnosis: Biliary Dyskinesia FORTUNATO WYNN DO Aug 29, 2018 11:26
--- NOTE | 2018-08-29 12:23 | Progress Note-Post Operative ---
Post-Operative Progess Note Surgeon (s)/Lead Retail Sales Associate (s) Surgeon FORTUNATO WYNN DO Lead Retail Sales Associate: Zohra Pre-Operative Diagnosis Biliary Dyskinesia Post-Operative Diagnosis Same plus beginnings of B/L direct inguinal hernias Procedure & Operative Findings Date of Procedure 08/29/18 Procedure Performed/Findings Lap karla with IOC Anesthesia Type GET Estimated Blood Loss Estimated blood loss (mL): scant Specimens/Packing Specimens Removed GB and contents FORTUNATO WYNN DO Aug 29, 2018 12:23
[2018-08-29] MEDS ORDERED: ACHD5005 PO (12:24)
--- NOTE | 2018-08-29 12:27 | Discharge Inst-Surgical ---
Discharge Inst-Surgical Depart Medication/Instructions New, Converted or Re-Newed RX: RX Given to Pt/Family Patient Instructions Follow up Appt: Make appointment for 1 week; [phone]. Instructions: No lifting greater than 30 pounds. No strenuous activity. May shower in 24 hours, no tub bath or soaking. Use incentive spirometer at home as directed. No Smoking Skin/Wound Care: May remove bandages in am. You need to leave the Dermabond on over incision it will fall off on its own. Symptoms to Report: Appetite Changes, Extremity Discoloration, Numbness/Tingling, Swelling Increased , Bleeding Excessive, Eyesight Changes, Pain Increased, Urine Color Change, Constipation(Persistent), Fever over 101 degree F, Pain/Pressure in chest, Urinating Difficulty, Cough Up/Vomit Blood, Heart Beat Irreg/Pounding, Pain/ Pressure in jaw, Cramps in feet or legs, Lightheadedness, Pain/Pressure in shoulder, Diarrhea(Persistent), Memory Changes Suddenly, Questions/Concerns, Weight gain consecutive days, Dizziness/Fainting, Nausea/Vomiting, Shortness of Breath, Weight gain over 2 pounds. If eyes or skin turn yellow notify physician. If questions or concerns contact your physician Or seek help at emergency department. Activity Activity as Tolerated: Yes Activity Instructions: Avoid Stress to Incision Driving Instructions: No Driving/Refer to Diet Discharge Diet: Avoid Fatty Foods, Low Fat/Low Cholesterol Diet After 24 Hours: Clear Liquid if Nauseous If Any Problems/Questions/Issu: Contact Your Physician, Go to Emergency Room Skin/Wound Care Infection Signs and Symptoms: Increased Redness, Foul Odor of Wound, Increased Drainage, Skin Itchy or Has a Rash, Increased Swelling, Temperature Above 101 F Wound Care Comment: Heating pad to neck or shoulder tonight for pain Bathing Instructions: Shower Stitches/Josette/Dermabond Dis: Dermabond Ice Pack: Ice On and Off Site (as needed to help pain) FORTUNATO WYNN DO Aug 29, 2018 12:27
[2018-08-29] MEDS ORDERED: ONDANSETRON 4 MG/2 ML (SDV) Z0FRAN IVP PRN (12:45)
[2018-08-29] MEDS ORDERED: fentaNYL INJECTION 100 MCG/2 ML AMP IVP ONE (12:45)
[2018-08-29] MEDS ORDERED: MEPERIDINE (DEMEROL) INJ 50 MG/ML IVP ONE (12:45)
--- NOTE | 2018-08-29 12:59 | Diagnostic Imaging Report ---
INDICATION: Low gallbladder ejection fraction. Patient is undergoing cholecystectomy. Fluoroscopy was provided in the OR during cholecystectomy and intraoperative cholangiogram. 10 seconds of fluoroscopy was utilized. Images demonstrate injection of contrast with opacification of intrahepatic and extrahepatic bile ducts. No filling defects are seen. IMPRESSION: Fluoroscopy during intraoperative cholangiogram. Dictated by: Dictated on workstation # [id number]
[2018-08-29] MEDS ORDERED: PROMETHAZINE INJ 25 MG/ML (PHENERGAN) AMP IVP ONE (13:15)
[2018-08-29] MEDS ORDERED: LACTATED RINGERS 1,000 ML IV ONE (13:16)
[2018-08-29 13:45] VITALS: BP 117/84
[2018-08-29 14:15] VITALS: BP 113/77
--- NOTE | 2018-08-29 14:31 | Anesthesia-General Post-Op ---
General Patient Condition Nausea/Vomiting: Present (Pt was C/O nausea in PACU but he did not want to receive Zofran, so he was given phenergan instead. ) Post Op Complications Complications None Follow Up Care/Instructions Patient Instructions None needed. Anesthesia/Patient Condition Patient Condition Patient has stable vital signs, no apparent adverse anesthesia problems. SHAHZAD GARCÍA DO Aug 29, 2018 14:31
[2018-08-29] MEDS ORDERED: TRAM50TA2 PO (14:53)
[2018-08-29 15:15] VITALS: BP 116/81
[2018-08-29 15:25] VITALS: BP 116/81
--- NOTE | 2018-08-29 19:01 | OPERATIVE REPORT ---
DATE OF SERVICE: 08/29/2018 PREOPERATIVE DIAGNOSIS: Biliary dyskinesia. POSTOPERATIVE DIAGNOSES: Biliary dyskinesia plus beginnings of bilateral direct inguinal hernias. PROCEDURE: Laparoscopic cholecystectomy, intraoperative cholangiogram. SURGEON: Sanford Norris DO HVAC MECHANIC: Jp العلي DO ANESTHESIA: General endotracheal tube. SPECIMEN: Gallbladder and contents. BLOOD LOSS: Scant. FLUIDS: Per anesthesia. POSTOPERATIVE CONDITION: Stable. INDICATION FOR PROCEDURE: The patient is a 38-year-old male who has been having increasing right upper quadrant pain and had a HIDA scan that showed biliary dyskinesia. FINDINGS: The patient actually had a lot of adhesions of the gallbladder. This was usually indicative of previous gallbladder attacks. It also looked like he had some edema around the gallbladder, which was again indicative of gallbladder attacks, also noted beginnings of bilateral direct inguinal hernia. PROCEDURE NOTE: After informed consent was obtained, the patient was brought to the operating room, placed on the table in supine position, sterilely prepped and draped in normal fashion. Local lidocaine was used to infiltrate the skin above the umbilicus. Made an incision with #11 blade, carried down through the skin into subcutaneous tissue, then deepened down to subcutaneous tissue with Bovie electrocautery down to the fascia. Fascia incised with Bovie electrocautery, bluntly entered the abdomen, swept the finger around, placed 0 Vicryl [id number] suture and placed 11 mm trocar port under direct visualization. Created pneumoperitoneum and placed 3 more ports in normal fashion using local lidocaine, 11 blade for stab incision and the VersaStep system, all done under direct visualization, one in the subxiphoid and 2 in the right upper quadrant. The patient then placed in reverse Trendelenburg and rotated slightly left. Able to visualize the gallbladder, grasped at the fundus and taken in the superior direction, noted adhesions. It was usually indicative of previous gallbladder attacks, started carefully taking these down with blunt dissection as well as Bovie electrocautery. Once these were carefully taken down, then able to grasp down Mignon's pouch and pulled in inferolateral direction, started dissecting out the cystic duct and cystic artery. I was able to get around the cystic duct and the cystic artery and placed 1 clip distally on the cystic duct and one distally and 2 proximally on the cystic artery. Cut the cystic duct long-term through Metzenbaum scissors. Placed a cholangiogram catheter and shot a cholangiogram. Good spillage of dye down the common bile duct into the small intestine as well as up into common hepatic and right and left hepatics. Removed the cholangiogram catheter, placed 2 clips proximally on the cystic duct and cut the cystic duct and cystic artery with Metzenbaum scissors. Removed the gallbladder from bed of liver with L-hook cautery. Once this was completely removed, placed a bag in the abdomen, placed the gallbladder in the bag and then removed this through a supraumbilical incision. Placed the port back in the abdomen, copiously irrigated with normal saline, took pictures of the bed of liver and the clips as well as what looked like beginnings of bilateral direct inguinal hernias. No other obvious pathology was seen. At this point, placed the patient supine. Suctioned out all fluid and then suctioned out all the pneumoperitoneum as well as allowed it to escape. Closed the supraumbilical incision, closing the fascia with 0 Vicryl suture previously placed. Copiously irrigated all incisions with normal saline, closing the 3 small 5 mm incisions with a single interrupted 4-0 undyed Monocryl subcuticular stitch, closed supraumbilical incision with 3 interrupted 4-0 undyed Monocryl subcuticular stitches. Area was cleaned and dried and Dermabond was placed as well as bandage. The patient was then transferred to recovery room in stable condition. Sponge, instrument and needle count correct at the end of the case. Job ID: [id number] DocumentID: [id number] Dictated Date: 08/29/2018 14:20:46 Edge Baster Date: 08/29/2018 19:01:20 Dictated By: SANFORD NORRIS DO
== END 2018-08-29 15:25 | disposition home or self-care (01) ==
LOC: SDC 08:58
PROVIDERS: ATTEND Surgery
DX: K81.1 Chronic cholecystitis (principal); K82.8 Other specified diseases of gallbladder; K40.20 Bilateral inguinal hernia, without obstruction or gangrene, not specified as recurrent; Z11.2 Encounter for screening for other bacterial diseases; K29.50 Unspecified chronic gastritis without bleeding; K21.9 Gastro-esophageal reflux disease without esophagitis
CPT/HCPCS: 36415; 85025; 87081

== ENCOUNTER 2019-05-16 09:13 | Emergency (ER) | payer SELFPAY ==
[~2019-05-16] VITALS: Ht 181.6 cm; Wt 80.7 kg
[~2019-05-16 09:13] MED LIST changes: +ACHD5005 PO; +TRAM50TA2 PO
--- NOTE | 2019-05-16 09:15 | NUR ---
Pt refused nitro.
[2019-05-16] MEDS ORDERED: NITROGLYCERIN 0.4 MG SL TABS BTL 25'S SL PRN (09:30)
[2019-05-16] MEDS ORDERED: ASPIRIN 81 MG CHEW (CHILDREN'S ASA) PO ONE (09:30)
[2019-05-16 09:31] LABS: BASOPHILS # (AUTO) 0.1 10^3/uL (0.0-0.1); BASOPHILS % (AUTO) 1 % (0-10); EOSINOPHILS # (AUTO) 0.3 10^3/uL (0.0-0.3); EOSINOPHILS % (AUTO) 5 % (0-10); HEMATOCRIT 44 % (40-54); HEMOGLOBIN 14.9 G/DL (13.3-17.7); LYMPHOCYTES # (AUTO) 1.6 X 10^3 (1.0-4.0); LYMPHOCYTES % (AUTO) 25 % (12-44); MEAN CORPUSCULAR HEMOGLOBIN 30 PG (25-34); MEAN CORPUSCULAR HGB CONC 34 G/DL (32-36); MEAN CORPUSCULAR VOLUME 88 FL (80-99); MEAN PLATELET VOLUME 9.5 FL (7.4-10.4); MONOCYTES # (AUTO) 0.5 X 10^3 (0.0-1.0); MONOCYTES % (AUTO) 8 % (0-12); NEUTROPHILS % (AUTO) 61 % (42-75); PLATELET COUNT 236 10^3/uL (130-400); RED CELL DISTRIBUTION WIDTH 13.3 % (10.0-14.5); WHITE BLOOD COUNT 6.6 10^3/uL (4.3-11.0)
[2019-05-16] MEDS ORDERED: ANTACID SUSP 30 ML UDC (MYLANTA) PO ONE ×2 (09:45→10:45)
[2019-05-16] MEDS ORDERED: LIDOCAINE 2% VISCOUS 15 ML UDC PO ONE (09:45)
--- NOTE | 2019-05-16 09:45 | ED Chest Pain ---
General Chief Complaint: Chest Pain Stated Complaint: CHEST PAIN Nursing Triage Note: Pt ambulatory to rm 5. Pt c/o chest pain radiating into L shoulder, neck and jaw that has persisted for 3-4 days. Pt reports chronic nausea. Nursing Sepsis Screen: No Definite Risk Source: patient Exam Limitations: no limitations History of Present Illness Date Seen by Provider: May 16, 2019 Time Seen by Provider: 09:15 Initial Comments Here with report of intermittent chest pain over the last 3-4 days that he reports is on the left side and radiates to the left neck, left shoulder and left arm. States that it's aching and 4 or 5 out of 10 on the scale. Onset this morning at around 6:30. He did take Aleve at that time and that has not helped. Has chronic nausea but no vomiting. Denies sweating or breathing problems. Timing/Duration: 1-3 hours, changing over time, 3-4 days Severity/Quality: moderate, aching Location: central Radiation: arms, neck, shoulders Activities at Onset: none Prior CP/Workup: echocardiography, stress test Modifying Factors: improves with other (none) ASA po RIDING INSTRUCTOR: No NTG SL RIDING INSTRUCTOR: No Associated Symptoms: No back pain; nausea/vomiting; No shortness of breath, No weakness Allergies and Home Medications Allergies Coded Allergies: alprazolam (Verified Allergy, Mild, AGITATION, 08/26/18) Home Medications Loratadine/Pseudoephedrine 1 Each Tab.er.12h, 1 EACH PO DAILY, (Reported) Ranitidine HCl 75 Mg Tablet, 75 MG PO BID, (Reported) Tramadol HCl 50 Mg Tablet, 50 MG PO Q8H Prescribed by: ERIK GOLDMAN on 08/29/18 [id number] Patient Home Medication List Home Medication List Reviewed: Yes Review of Systems Review of Systems Constitutional: see HPI; No chills, No fever; other (fatigue) EENTM: No Symptoms Reported Respiratory: No Symptoms Reported Cardiovascular: See HPI, Chest Pain; Denies Edema; Palpitations Gastrointestinal: Denies Abdominal Pain; Nausea; Denies Vomiting Genitourinary: No Symptoms Reported Musculoskeletal: no symptoms reported All Other Systems Reviewed Negative Unless Noted: Yes Past Vuatqjd-Bfsjqi-Ydqrbk Hx Past Med/Social Hx: Reviewed Nursing Past Med/Soc Hx Patient Social History Alcohol Use: Denies Use Number of Drinks Today: AA Alcohol Beverage of Choice: Beer Recreational Drug Use: No Smoking Status: Current Everyday Smoker Type Used: Electronic/Vapor Former Smoker, Quit: Dec 15, 2017 Recent Foreign Travel: No Contact w/Someone Who Travel: No Recent Infectious Disease Expo: No Recent Hopitalizations: No Seasonal Allergies Seasonal Allergies: No Past Medical History Surgeries: No Gallbladder Respiratory: No Cardiac: No Neurological: No Reproductive Disorders: No Sexually Transmitted Disease: No HIV/AIDS: No Genitourinary: No Gastrointestinal: Yes Gastroesophageal Reflux, Gall Bladder Disease Musculoskeletal: No Endocrine: No HEENT: No Loss of Vision: Bilateral Hearing Impairment: Denies Cancer: No Psychosocial: Yes (REPORTS ANGER ISSUES) Anxiety Integumentary: No Blood Disorders: No Adverse Reaction/Blood Tranf: No (N/A) Family Medical History Reviewed Nursing Family Hx Physical Exam Vital Signs Vital Signs - First Documented 05/16/19 09:13 Temp 97.4 Pulse 81 Resp 10 B/P (MAP) 137/116 (123) Pulse Ox 97 O2 Delivery Room Air Capillary Refill : Less Than 3 Seconds Height, Weight, BMI Height: 5'11.50" Weight: 178lbs. 0.0oz. 80.319142vs; 26.5 BMI Method:Stated General Appearance: No Apparent Distress, WD/WN HEENT: PERRL/EOMI, Pharynx Normal Neck: Normal Inspection, Non Tender Respiratory: Chest Non Tender, Lungs Clear, Normal Breath Sounds, No Accessory Muscle Use, No Respiratory Distress Cardiovascular: Regular Rate, Rhythm, No Murmur, Normal Peripheral Pulses Gastrointestinal: Non Tender, Soft Extremity: Normal Range of Motion, Non Tender Neurologic/Psychiatric: Alert, Oriented x3 Skin: Normal Color, Warm/Dry Progress/Results/Core Measures Results/Orders Lab Results Laboratory Tests Test 05/16/19 09:15 05/16/19 11:20 Range/Units White Blood Count 6.6 4.3-11.0 10^3/uL Red Blood Count 4.99 4.35-5.85 10^6/uL Hemoglobin 14.9 13.3-17.7 G/DL Hematocrit 44 40-54 % Mean Corpuscular Volume 88 80-99 FL Mean Corpuscular Hemoglobin 30 25-34 PG Mean Corpuscular Hemoglobin Concent 34 32-36 G/DL Red Cell Distribution Width 13.3 10.0-14.5 % Platelet Count 236 130-400 10^3/uL Mean Platelet Volume 9.5 7.4-10.4 FL Neutrophils (%) (Auto) 61 42-75 % Lymphocytes (%) (Auto) 25 12-44 % Monocytes (%) (Auto) 8 0-12 % Eosinophils (%) (Auto) 5 0-10 % Basophils (%) (Auto) 1 0-10 % Neutrophils # (Auto) 4.0 1.8-7.8 X 10^3 Lymphocytes # (Auto) 1.6 1.0-4.0 X 10^3 Monocytes # (Auto) 0.5 0.0-1.0 X 10^3 Eosinophils # (Auto) 0.3 0.0-0.3 10^3/uL Basophils # (Auto) 0.1 0.0-0.1 10^3/uL Prothrombin Time 12.3 12.2-14.7 SEC INR Comment 0.9 0.8-1.4 Activated Partial Thromboplast Time 27 24-35 SEC D-Dimer < 0.27 0.00-0.49 UG/ML Sodium Level 141 135-145 MMOL/L Potassium Level 3.8 3.6-5.0 MMOL/L Chloride Level 106 98-107 MMOL/L Carbon Dioxide Level 26 21-32 MMOL/L Anion Gap 9 5-14 MMOL/L Blood Urea Nitrogen 19 H 7-18 MG/DL Creatinine 1.11 0.60-1.30 MG/DL Estimat Glomerular Filtration Rate > 60 BUN/Creatinine Ratio 17 Glucose Level 85 70-105 MG/DL Calcium Level 9.2 8.5-10.1 MG/DL Corrected Calcium 8.9 8.5-10.1 MG/DL Magnesium Level 2.2 1.8-2.4 MG/DL Total Bilirubin 0.5 0.1-1.0 MG/DL Aspartate Amino Transf (AST/SGOT) 28 5-34 U/L Alanine Aminotransferase (ALT/SGPT) 70 H 0-55 U/L Alkaline Phosphatase 67 40-136 U/L Myoglobin 81.3 10.0-92.0 NG/ML Troponin I < 0.028 < 0.028 <0.028 NG/ML Total Protein 6.6 6.4-8.2 GM/DL Albumin 4.4 3.2-4.5 GM/DL Lipase 26 8-78 U/L My Orders Orders - LAURYN,THO D MD Cbc With Automated Diff (05/16/19:24) Magnesium (05/16/19:24) Chest 1 View, Ap/Pa Only (05/16/19:24) Ekg Tracing (05/16/19:24) Cardiac Profile 1 (05/16/19:24) Comprehensive Metabolic Panel (05/16/19:24) Myoglobin Serum (05/16/19:24) Protime With Inr (05/16/19:24) Partial Thromboplastin Time (05/16/19:24) O2 (05/16/19:24) Monitor-Rhythm Ecg Trace Only (05/16/19:24) Lipid Panel (05/17/19 06:00) Ed Iv/Invasive Line Start (05/16/19:24) Fibrin Degradation Products (05/16/19:24) Nitroglycerin 0.4 Mg Btl 25's (Nitrostat (05/16/19 09:30) Aspirin Chewable Tablet (Baby Aspirin Ch (05/16/19 09:30) Lipase (05/16/19 09:41) Lidocaine 2% Viscous 15 Ml (Xylocaine Vi (05/16/19 09:45) Antacid Suspension (Mylanta Suspension (05/16/19 09:45) Famotidine Injection (Pepcid Injection) (05/16/19 09:58) Troponin I (05/16/19 10:42) Antacid Suspension (Mylanta Suspension (05/16/19 10:45) Medications Given in ED Current Medications Medications Dose Ordered Sig/Steven Route Start Time Stop Time Status Last Admin Dose Admin Al Hydrox/Mg Hydrox/Simethicone 30 ml ONCE ONCE PO 05/16/19 10:45 05/16/19 10:46 DC 05/16/19 10:47 30 ML Aspirin 324 mg ONCE ONCE PO 05/16/19 09:30 05/16/19 09:31 DC 05/16/19 09:20 324 MG Vital Signs/I&O 05/16/19 05/16/19 09:13 09:13 Temp 97.4 Pulse 81 Resp 10 B/P (MAP) 137/116 (123) Pulse Ox 97 O2 Delivery Room Air Room Air Blood Pressure Mean: 123 Progress Progress Note : Progress Note Seen and evaluated. IV, labs, EKG and chest x-ray ordered. ASA 324 mg by mouth ordered. Patient declined nitroglycerin. We will tried a GI cocktail. Patient does have significant history with respect to esophagitis, gastritis and duodenitis noted on scope done last year. Has had negative stress test done 2 years ago as well as normal echo. We will additionally check lipase and d-dimer. Monitor patient. 1002: Patient declined GI cocktail but would take some Pepcid. Pepcid 20 mg IV ordered. Monitor patient. 1200: Repeat troponin is negative and patient is better with respect to pain and was resting comfortably. This does seem to have more of a component to his excess acid and gastritis/esophagitis noted on previous upper endoscopy. We will currently treat as such. Discharged home with return precautions. Patient verbalize understanding instructions and agreement with plan. Initial ECG Impression Date: May 16, 2019 Initial ECG Impression Time: 09:18 Initial ECG Rate: 76 Initial ECG Rhythm: Normal Sinus Comment Sinus rhythm with normal axis. No evidence of ST elevation CA. Incomplete right bundle branch block noted. Similar to previous of 06/29/17. Interpreted by me. Diagnostic Imaging Diagonstic Imaging: Xray Plain Films/CT/US/NM/MRI: chest Comments NAME: ANA MEDEL MED REC#: [id number] PT STATUS: REG ER : 1980 PHYSICIAN: THO COMBS MD ADMIT DATE: 05/16/19/ER Signed Date of Exam: 05/16/19 CHEST 1 VIEW, AP/PA ONLY INDICATION: Chest pain COMPARISON: 06/29/2017 FINDINGS: The lungs are clear. The heart and vessels normal. There is no effusion or pneumothorax. IMPRESSION: No acute appearing abnormality. Dictated by: Dictated on workstation # [id number] Dict: 05/16/19946 Trans: 05/16/19957 Interpreted by: TED MCCOY Electronically signed by: TED MCCOY 05/16/19957 Departure Impression Primary Impression: Chest pain Qualified Codes: R07.9 - Chest pain, unspecified Additional Impression: Epigastric abdominal pain Disposition: 01 HOME, SELF-CARE Condition: Improved Departure-Patient Inst. Referrals: LORNA VEE DO (PCP/Family) Primary Care Physician Patient Instructions: Chest Pain (DC), Acute Abdomen (Belly Pain), Adult (DC) Add. Discharge Instructions: All discharge instructions reviewed with patient and/or family. Voiced understanding. You may continue your Zantac 75 milligrams once or twice daily. You should take that twice daily for the next week and then once daily thereafter as needed to reduce acid. Take other medications as directed. It is important that you follow up with your doctor in a few days for further evaluation regarding this ongoing problem. Return for worse pain, weakness, vomiting, breathing problems, chest pain, swelling or other concerns as needed. Scripts Sucralfate (Sucralfate) 1 Gm Tablet 1 GM PO ACHS, #120 TAB Choose tablet to a slurry and then swallow Prov: THO COMBS MD 05/16/19 Copy Copies To 1: LORNA VEE TIMOTHY D MD May 16, 2019 09:45
[2019-05-16 09:50] LABS: INR 0.9 (0.8-1.4); PROTHROMBIN TIME PATIENT 12.3 SEC (12.2-14.7)
--- NOTE | 2019-05-16 09:53 | Diagnostic Imaging Report ---
INDICATION: Chest pain COMPARISON: 06/29/2017 FINDINGS: The lungs are clear. The heart and vessels normal. There is no effusion or pneumothorax. IMPRESSION: No acute appearing abnormality. Dictated by: Dictated on workstation # [id number]
--- NOTE | 2019-05-16 09:55 | NUR ---
Pt refused GI cocktail. Dr. Mena notified.
[2019-05-16] MEDS ORDERED: FAMOTIDINE 20MG/2ML IV (PEPCID) IV STA (09:58)
[2019-05-16 10:01] LABS: ALANINE AMINOTRANSFERASE 70 U/L (0-55); ALBUMIN 4.4 GM/DL (3.2-4.5); ALKALINE PHOSPHATASE 67 U/L (40-136); BILIRUBIN,TOTAL 0.5 MG/DL (0.1-1.0); BUN/CREATININE RATIO 17; CALCIUM 9.2 MG/DL (8.5-10.1); CARBON DIOXIDE 26 MMOL/L (21-32); CHLORIDE 106 MMOL/L (98-107); CREATININE SERUM 1.11 MG/DL (0.60-1.30); GFR ESTIMATED > 60; GLUCOSE 85 MG/DL (70-105); MAGNESIUM 2.2 MG/DL (1.8-2.4); POTASSIUM 3.8 MMOL/L (3.6-5.0); SODIUM 141 MMOL/L (135-145); TOTAL PROTEIN 6.6 GM/DL (6.4-8.2)
[2019-05-16] MEDS ORDERED: SUCR1TAB PO (12:09)
[2019-05-16 12:20] VITALS: BP 114/84
== END 2019-05-16 12:20 | disposition home or self-care (01) ==
LOC: EDUNIT# 09:13 → ER 09:14
DX: R07.9 Chest pain, unspecified (principal); R10.13 Epigastric pain; K21.9 Gastro-esophageal reflux disease without esophagitis; F41.9 Anxiety disorder, unspecified; Z87.19 Personal history of other diseases of the digestive system; Z88.8 Allergy status to other drugs, medicaments and biological substances; Z87.891 Personal history of nicotine dependence; Z98.890 Other specified postprocedural states
CPT/HCPCS: 36415; 71045; 80053; 83690; 83735; 83874; 84484; 85025; 85379; 85610; 85730; 93005; 93041; 96374

== ENCOUNTER 2021-11-05 08:00 | Outpatient (RCR) | payer OTHER ==
[~2021-11-05] VITALS: Ht 180.3 cm; Wt 91.7 kg
[~2021-11-05 08:00] MED LIST changes: -METO-387 PO; +MTP25TSR PO; +OMEP20TA33 PO; +PROM25TA14 PO; +RANI-324 PO; -RANI75TA21 PO; +SUCR1TAB PO; -TRAM50TA2 PO; +TRM50T PO
== END 2021-11-06 08:57 | disposition home or self-care (01) ==
LOC: PREOP 08:00
PROVIDERS: ATTEND Surgery
DX: Z01.812 Encounter for preprocedural laboratory examination (principal); K29.50 Unspecified chronic gastritis without bleeding; K62.5 Hemorrhage of anus and rectum; Z20.822 Contact with and (suspected) exposure to COVID-19
CPT/HCPCS: 87635

== ENCOUNTER 2021-11-10 10:51 | Day surgery (SDC) | payer OTHER ==
[~2021-11-10] VITALS: Ht 180.3 cm; Wt 91.7 kg
[2021-11-10] MEDS ORDERED: LACTATED RINGERS 1,000 ML IV STA ×2 (11:04→11:42)
[2021-11-10 11:10] VITALS: BP 121/92
[2021-11-10] MEDS ORDERED: LACTATED RINGERS 1,000 ML IV ONE (11:14)
[2021-11-10] MEDS ORDERED: HURRICAINE EXT TUBE (BENZOCAINE) XX PRN (11:15)
--- NOTE | 2021-11-10 11:50 | Progress Note-Pre Operative ---
Pre-Operative Progress Note H&P Reviewed The H&P was reviewed, patient examined and no changes noted. Time Seen by Provider: 11:45 Date H&P Reviewed: Nov 10, 2021 Time H&P Reviewed: 11:45 Pre-Operative Diagnosis: Rectal bleed, Chronic Gastritis FORTUNATO WYNN DO Nov 10, 2021 11:50
[2021-11-10] MEDS ORDERED: MIDAZOLAM 2 MG/2 ML (VERSED) VIAL ONE (13:13)
[2021-11-10] MEDS ORDERED: PROPOFOL INJECTION 50 ML IV ONE (13:13)
--- NOTE | 2021-11-10 13:41 | Progress Note-Post Operative ---
Post-Operative Progess Note Surgeon (s)/Customer Support Coordinator (s) Surgeon FORTUNATO WYNN DO Customer Support Coordinator: NATALIE Rajput Pre-Operative Diagnosis Rectal bleed, Chronic Gastritis Post-Operative Diagnosis gastritis esophagitis int hemorrhoids Procedure & Operative Findings Date of Procedure 11/10/21 Procedure Performed/Findings EGD with bx Colonoscopy PROCEDURE NOTE: After informed consent was obtained, the patient was brought to the endoscopy suite, placed in bed in left lateral decubitus position. He was administered IV sedation by the BANDOLEER STRAIGHTENER STAMPER who then monitored vitals the entire time, heart rate, blood pressure and pulse ox and the scope was inserted down the mouth through the esophagus into the stomach. On the way down, noted some mild esophagitis, took a picture, pushed into the stomach, pushed past the antrum into the duodenum. Duodenum looked good. Pulled back and did a biopsy of antrum, then retroflexed the scope, did not see a hiatal hernia. Pulled the scope into the GE junction, and then did two biopsies of the GE junction. Pushed the scope back into the stomach, suctioned all the air out of the stomach. At this point pulled the scope up the esophagus and out the mouth. Switched camera, switched gloves, went down below, started the colonoscopy. Pushed all the way into about 140 cm to get all the way to cecum, took a picture of the appendiceal orifice, noted the ileocecal valve and then slowly withdrew the scope, insufflating the circumferential [place] looking the cecum, up the ascending colon to the hepatic flexure, then down the transverse colon, splenic flexure, into the descending colon, down into the sigmoid and finally into the rectum, retroflexed in the rectal vault, saw some minimal internal hemorrhoids and took a picture of this. He doesn't need a colonoscopy until he turns 50. The patient tolerated the procedure and he recovered in the endoscopy suite. Anesthesia Type IV sedation by BANDOLEER STRAIGHTENER STAMPER Estimated Blood Loss Estimated blood loss (mL): scant Specimens/Packing Specimens Removed antral bx GE jxn bx x 2 FORTUNATO WYNN DO Nov 10, 2021 13:41
--- NOTE | 2021-11-10 13:42 | Endoscopy Discharge Instruct ---
Endo Procedure/Findings Findings 1.: Gastritis 2.: Other Findings (Esophagitis) 3.: Internal Hemorrhoids Discharge Instructions - Activity: You might feel a little sleepy until tomorrow. This is due to the medicine you received to relax you. Until tomorrow, you should: NOT drive a car, operate machinery or power tools. NOT drink any alcoholic beverages. NOT make any important decisions or sign importortant papers. Do not return to work until tomorrow, unless otherwise instructed. Resume previous activities tomorrow. Diet: Start by taking liquids. If you tolerate liquids, advance to solid food. 1.: EGD in 3 years 2.: Colonscopy in 10 years Notify Physician - If you experience excessive bleeding, unusual abdominal pain, fever, or chest pain, contact your doctor immediately. FORTUNATO WYNN DO Nov 10, 2021 13:42
[2021-11-10 13:47] VITALS: BP 99/60
--- NOTE | 2021-11-10 13:49 | Anesthesia-General Post-Op ---
MAC Patient Condition Mental Status/LOC: Same as Preop Cardiovascular: Satisfactory Nausea/Vomiting: Absent Respiratory: Satisfactory Pain: Controlled Complications: Absent Post Op Complications Complications None Follow Up Care/Instructions Patient Instructions None needed. Anesthesiology Discharge Order Discharge Order Patient is doing well, no complaints, stable vital signs, no apparent adverse anesthesia problems. No complications reported per nursing. LONG LLANES CRNA Nov 10, 2021 13:49
[2021-11-10 13:52] VITALS: BP 92/58
[2021-11-10 13:55] VITALS: BP 92/58
[2021-11-10 14:38] VITALS: BP 116/84
[2021-11-10 14:44] VITALS: BP 116/84
== END 2021-11-10 14:38 | disposition home or self-care (01) ==
LOC: ENDO 10:51
PROVIDERS: ATTEND Surgery
DX: K29.51 Unspecified chronic gastritis with bleeding (principal); K31.A0 Gastric intestinal metaplasia, unspecified; K21.01 Gastro-esophageal reflux disease with esophagitis, with bleeding; K64.8 Other hemorrhoids; F17.210 Nicotine dependence, cigarettes, uncomplicated
CPT/HCPCS: 88305

== ENCOUNTER → 2022-04-09 | Outpatient (CLI) | payer OTHER ==
--- NOTE | 2022-04-09 15:09 | Diagnostic Imaging Report ---
INDICATION: PAIN IN LT KNEE COMPARISON: None. FINDINGS: Multiple radiographic views of the left knee joint demonstrate no acute fracture or dislocation. No focal osseous lesions are seen. Mild suprapatellar joint effusion is seen. The surrounding soft tissue structures are unremarkable. There are no radiopaque foreign bodies. IMPRESSION: 1. Suprapatellar joint effusion, but no radiographic evidence acute fracture or dislocation of the left knee. Dictated by: Dictated on workstation # [id number]
== END ==
LOC: ORTHO 14:33
PROVIDERS: ATTEND Orthopaedic Surgery
DX: M25.462 Effusion, left knee (principal); M25.562 Pain in left knee
CPT/HCPCS: 73564; G0463; 99203

== ENCOUNTER 2023-04-09 03:41 | Emergency (ER) | payer OTHER ==
[~2023-04-09] VITALS: Ht 180 cm; Wt 86.1 kg
[2023-04-09 03:58] LABS: BASOPHILS # (AUTO) 0.1 10^3/uL (0.0-0.1); BASOPHILS % (AUTO) 1 % (0-10); EOSINOPHILS # (AUTO) 0.4 10^3/uL (0.0-0.3); EOSINOPHILS % (AUTO) 6 % (0-10); HEMATOCRIT 46 % (40-54); HEMOGLOBIN 15.7 g/dL (13.3-17.7); LYMPHOCYTES # (AUTO) 2.4 10^3/uL (1.0-4.0); LYMPHOCYTES % (AUTO) 37 % (12-44); MEAN CORPUSCULAR HEMOGLOBIN 30 pg (25-34); MEAN CORPUSCULAR HGB CONC 34 g/dL (32-36); MEAN CORPUSCULAR VOLUME 88 fL (80-99); MEAN PLATELET VOLUME 9.7 fL (9.0-12.2); MONOCYTES # (AUTO) 0.6 10^3/uL (0.0-1.0); MONOCYTES % (AUTO) 9 % (0-12); NEUTROPHILS # (AUTO) 3.1 10^3/uL (1.8-7.8); NEUTROPHILS % (AUTO) 47 % (42-75); PLATELET COUNT 222 10^3/uL (130-400); WHITE BLOOD COUNT 6.6 10^3/uL (4.3-11.0)
[2023-04-09] MEDS ORDERED: NITROGLYCERIN 0.4 MG SL TABS BTL 25'S SL PRN (04:00)
[2023-04-09] MEDS ORDERED: ASPIRIN 81 MG CHEW (CHILDREN'S ASA) PO ONE (04:00)
[2023-04-09 04:08] LABS: INR 0.9 (0.8-1.4); PROTHROMBIN TIME PATIENT 12.2 SEC (12.2-14.7)
[2023-04-09 04:09] LABS: PARTIAL THROMBOPLASTIN TIME 28 SEC (24-35)
[2023-04-09 04:14] LABS: ALBUMIN 4.3 GM/DL (3.2-4.5); CHLORIDE 108 MMOL/L (98-107); SODIUM 140 MMOL/L (135-145)
--- NOTE | 2023-04-09 04:14 | ED Chest Pain ---
General Chief Complaint: Chest Pain Stated Complaint: CP,BACK & LEFT ARM PX,SOB Nursing Triage Note: PATIENT VERBALIZED CHEST PAIN/SOB LAST 24 HOURS STATES LEFT ARM PAIN/NUMBNESS. STATES "RACING" HEART RATE, STATES SOB WOKE HIM FROM SLEEP. LIGHTHEADED/DIZZINESS Source: patient History of Present Illness Date Seen by Provider: April 09, 2023 Time Seen by Provider: 03:47 Initial Comments PT ARRIVES VIA POV FROM HOME C/O CHEST PAIN FOR THE LAST 24 HOURS PAIN IS ALL ACROSS HIS CHEST, PAIN COMES AND GOES NOTHING WORSENS OR IMPROVES PAIN. TOOK TYLENOL YESTERDAY X 1 WITHOUT RELIEF STATES HIS LEFT ARM HURTS AND FEELS NUMB STATES HE HAS HAD SHORTNESS OF BREATH THAT COMES AND GOES--AND WOKE UP AROUND 2300 SHORT OF BREATH HE ALSO WOKE UP AT 2300 WITH FEELING LIKE HIS HEART WAS RACING. HE DID NOT CHECK HIS PULSE HE STATES IT ALSO HURTS TO TAKE A DEEP A BREATH HE HAS FELT A LITTLE LIGHTHEADED OFF AND ON NO SWEATS NO SWELLING IN LEGS/FEET OR PAIN IN CALVES NO NAUSEA/VOMITING NO SYNCOPE RATES PAIN 8/10 AT WORST, RATES 3/10 NOW HE HAS HAD SIMILAR PAIN "ABOUT A YEAR AGO" AND CAME HERE. WORK UP IN ER WAS REPORTEDLY NEGATIVE. DID NOT FOLLOW UP WITH ANYONE AFTER THAT. ( ON REVIEW OF OLD RECORDS, IT WAS ACTUALLY 2018 THAT HE CAME TO ER FOR CHEST PAIN ). HE LATER STATES THAT WHEN HE HAD THIS ABOUT A YEAR AGO, HE WENT TO [facility]--WORK UP THERE WAS REPORTEDLY NORMAL WELL. HE DENIES ANY MEDICAL PROBLEMS, AND DOES NOT TAKE ANY MEDICATIONS HE SMOKED 1 PPD, QUIT 1 1/2 YEARS AGO. HE USED TO DRINK A COUPLE OF BEERS / WEEK-NONE FOR 2 YEARS DENIES DRUG USE. STRONG FAMILY HISTORY OF CORONARY ARTERY DISEASE--FATHER, UNCLES, GRANDFATHER ALL HAD KY'S IN 50'S AND 60'S. PCP: [facility] [place] Allergies and Home Medications Allergies Coded Allergies: alprazolam (Verified Allergy, Mild, AGITATION, 08/26/18) Patient Home Medication List Home Medication List Reviewed: Yes Loratadine/Pseudoephedrine (Claritin-D 12 Hour Tablet) 1 Each Tab.er.12h, 1 EACH PO DAILY, (Reported) Entered as Reported by: PONCE CRAIG on 08/26/18 1129 Omeprazole Magnesium (Prilosec Otc) 20 Mg Tablet.dr, 20 MG PO DAILY, (Reported) Entered as Reported by: RADHA NELSON on 09/29/21 1523 Promethazine HCl (Promethazine Tablet) 25 Mg Tablet, 25 MG PO Q8H PRN for NAUSEA/VOMITING, (Reported) Entered as Reported by: RADHA NELSON on 09/29/21 1523 Review of Systems Review of Systems Constitutional: No diaphoresis; dizziness Respiratory: See HPI, Shortness of Air Cardiovascular: See HPI, Chest Pain, Lightheadedness, Palpitations Gastrointestinal: No Symptoms Reported; Denies Abdominal Pain, Denies Nausea, Denies Vomiting Genitourinary: No Symptoms Reported Musculoskeletal: see HPI Skin: no symptoms reported Psychiatric/Neurological: See HPI Endocrine: No Symptoms Reported Hematologic/Lymphatic: No Symptoms Reported Past [id number]-Uohqxn Hx Patient Social History Tobacco Use?: Yes Tobacco type used: Cigarettes Smoking Status: Former Smoker Use of E-Cig and/or Vaping dev: No Substance use?: No Alcohol Use?: Yes Immunizations Up To Date Influenza Vaccine Up-to-Date: No; Not Current First/Initial COVID19 Vaccinat: NO Seasonal Allergies Seasonal Allergies: No Past Medical History Surgeries: Yes Gallbladder Respiratory: No Cardiac: No Neurological: No Reproductive Disorders: No Sexually Transmitted Disease: No HIV/AIDS: No Genitourinary: No Gastrointestinal: Yes (S/P ELY) Gastroesophageal Reflux, Gall Bladder Disease Musculoskeletal: No Endocrine: No HEENT: No Loss of Vision: Bilateral Hearing Impairment: Denies Cancer: No Psychosocial: Yes (REPORTS ANGER ISSUES) Anxiety Integumentary: No Blood Disorders: No Adverse Reaction/Blood Tranf: No (N/A) Family Medical History SOCIAL HISTORY: PER PT ON 04/09/23 -SMOKED 1 PPD, QUIT 1 1/2 YEARS AGO -[facility]--DRANK A COUPLE OF TIMES A WEEK, NONE FOR 2 YEARS -DENIES DRUG USE Physical Exam Vital Signs Vital Signs - First Documented 04/09/23 03:48 Temp 36.2 Pulse 72 Resp 18 B/P (MAP) 134/94 (107) Pulse Ox 96 O2 Delivery Room Air Capillary Refill : Less Than 3 Seconds Height, Weight, BMI Height: 5'11.50" Weight: 178lbs. 0.0oz. 80.153624al; 26.00 BMI Method:Stated General Appearance: No Apparent Distress, WD/WN, Anxious HEENT: PERRL/EOMI Neck: Full Range of Motion, Normal Inspection, Non Tender, Supple; No Carotid Bruit, No JVD Respiratory: Normal Breath Sounds, No Accessory Muscle Use, No Respiratory Distress, Other (MID AND LOWER STERNAL TENDERNESS) Cardiovascular: Regular Rate, Rhythm, No Edema, No JVD, No Murmur, Normal Peripheral Pulses Gastrointestinal: Normal Bowel Sounds, No Organomegaly, No Pulsatile Mass, Non Tender, Soft Extremity: Normal Capillary Refill, Normal Inspection, Normal Range of Motion, Non Tender, No Calf Tenderness, No Pedal Edema Neurologic/Psychiatric: Alert, Oriented x3, No Motor/Sensory Deficits, 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 Norm as Tested, Other (ANXIOUS) Skin: Normal Color, Warm/Dry Progress/Results/Core Measures Results/Orders Lab Results Laboratory Tests Test 04/09/23 03:50 Range/Units White Blood Count 6.6 4.3-11.0 10^3/uL Red Blood Count 5.18 4.30-5.52 10^6/uL Hemoglobin 15.7 13.3-17.7 g/dL Hematocrit 46 40-54 % Mean Corpuscular Volume 88 80-99 fL Mean Corpuscular Hemoglobin 30 25-34 pg Mean Corpuscular Hemoglobin Concent 34 32-36 g/dL Red Cell Distribution Width 12.8 10.0-14.5 % Platelet Count 222 130-400 10^3/uL Mean Platelet Volume 9.7 9.0-12.2 fL Immature Granulocyte % (Auto) 1 % Neutrophils (%) (Auto) 47 42-75 % Lymphocytes (%) (Auto) 37 12-44 % Monocytes (%) (Auto) 9 0-12 % Eosinophils (%) (Auto) 6 0-10 % Basophils (%) (Auto) 1 0-10 % Neutrophils # (Auto) 3.1 1.8-7.8 10^3/uL Lymphocytes # (Auto) 2.4 1.0-4.0 10^3/uL Monocytes # (Auto) 0.6 0.0-1.0 10^3/uL Eosinophils # (Auto) 0.4 H 0.0-0.3 10^3/uL Basophils # (Auto) 0.1 0.0-0.1 10^3/uL Immature Granulocyte # (Auto) 0.0 0.0-0.1 10^3/uL Prothrombin Time 12.2 12.2-14.7 SEC INR Comment 0.9 0.8-1.4 Activated Partial Thromboplast Time 28 24-35 SEC D-Dimer < 0.22 0.00-0.49 UG/ML Sodium Level 140 135-145 MMOL/L Potassium Level 4.0 3.6-5.0 MMOL/L Chloride Level 108 H 98-107 MMOL/L Carbon Dioxide Level 16 L 21-32 MMOL/L Anion Gap 16 H 5-14 MMOL/L Blood Urea Nitrogen 15 7-18 MG/DL Creatinine 1.12 0.60-1.30 MG/DL Estimat Glomerular Filtration Rate 84 BUN/Creatinine Ratio 13 Glucose Level 117 H 70-105 MG/DL Calcium Level 8.8 8.5-10.1 MG/DL Corrected Calcium 8.6 8.5-10.1 MG/DL Magnesium Level 2.0 1.6-2.4 MG/DL Total Bilirubin 0.3 0.1-1.0 MG/DL Aspartate Amino Transf (AST/SGOT) 21 5-34 U/L Alanine Aminotransferase (ALT/SGPT) 56 H 0-55 U/L Alkaline Phosphatase 82 40-136 U/L Total Creatine Kinase 105 30-200 U/L Creatine Kinase MB 1.1 <6.6 NG/ML Myoglobin 39.3 10.0-92.0 NG/ML Troponin I < 0.028 <0.028 NG/ML B-Type Natriuretic Peptide 10.3 <100.0 PG/ML Total Protein 6.8 6.4-8.2 GM/DL Albumin 4.3 3.2-4.5 GM/DL Amylase Level 58 25-125 U/L Lipase 46 8-78 U/L My Orders Orders - BLAINE DE JESUS DO Ed Iv/Invasive Line Start (04/09/23 03:47) Ekg Tracing (04/09/23 03:47) O2 (04/09/23 03:47) Monitor-Rhythm Ecg Trace Only (04/09/23 03:47) Cbc With Automated Diff (04/09/23 03:47) Magnesium (04/09/23 03:47) Chest 1 View, Ap/Pa Only (04/09/23 03:47) Ekg Tracing (04/09/23 03:47) Comprehensive Metabolic Panel (04/09/23 03:47) Myoglobin Serum (04/09/23 03:47) Protime With Inr (04/09/23 03:47) Partial Thromboplastin Time (04/09/23 03:47) O2 (04/09/23 03:47) Ed Iv/Invasive Line Start (04/09/23 03:47) Creatine Kinase (04/09/23 03:47) Creatine Kinase Mb (04/09/23 03:47) Lipase (04/09/23 03:47) Amylase (04/09/23 03:47) Bnp [place] (04/09/23 03:47) Nitroglycerin 0.4 Mg Btl 25's (Nitrostat (04/09/23 04:00) Aspirin Chewable Tablet (Baby Aspirin Ch (04/09/23 04:00) Fibrin Degradation Products (04/09/23 03:47) Troponin I [place] (04/09/23 03:47) Medications Given in ED Current Medications Medications Dose Ordered Sig/Steven Route Start Time Stop Time Status Last Admin Dose Admin Aspirin 324 mg ONCE ONCE PO 04/09/23 04:00 04/09/23 04:01 DC 04/09/23 03:55 324 MG Vital Signs/I&O 04/09/23 03:48 Temp 36.2 Pulse 72 Resp 18 B/P (MAP) 134/94 (107) Pulse Ox 96 O2 Delivery Room Air Blood Pressure Mean: 107 Progress Progress Note : Progress Note GIVEN ASPIRIN PT REFUSED NTG--STATES "MY FAMILY HAS HAD BAD REACTIONS TO NITRO" PAIN AND OTHER SYMPTOMS RESOLVED WITHOUT TREATMENT DISCUSSED TEST RESULTS. PT'S SYMPTOMS HAVE BEEN ONGOING FOR AT LEAST 24 HOURS, WITH A NEGATIVE TROPONIN AND NO ACUTE FINDINGS ON EKG, THERE IS NO EVIDENCE OF AN KY AT THIS TIME. DISCUSSED WITH PT THAT ALTHOUGH HIS TESTS TODAY DO NOT SHOW AN ACUTE KY, HIS SYMPTOMS COULD STILL BE CARDIAC RELATED. I OFFERED ADMIT AND FURTHER CARDIAC WORK UP IN THE HOSPITAL AND HE DECLINES AT THIS TIME. DISCUSSED FURTHER OUTPATIENT CARDIAC TESTING, AND PT IS VERY AGREEABLE TO FOLLOWING UP WITH PROOFER PREPRESS IN OFFICE. RETURN PRECAUTIONS DISCUSSED, ALSO DISCUSSED ACTIVITY RESTRICTIONS, STARTING LOW DOSE ASPIRIN DAILY, AND IMPORTANCE OF FOLLOW UP. DISCUSSED DIFFERENTIAL DX INCLUDING CAD, ARRHYTHMIA, SLEEP APNEA, OR NON-CARDIAC CAUSES SUCH GI RELATED ISSUES, AND ANXIETY. REVIEWED PRIOR RECORDS, ALL ER VISITS AND OUTPATIENT PROCEDURES Initial ECG Impression Date: April 09, 2023 Initial ECG Impression Time: 03:52 Initial ECG Rate: 61 Initial ECG Rhythm: Normal Sinus (INCOMPLETE RBBB) Initial ECG Intervals FL 161 QRS 113 QT/QTC 398/402 Initial ECG Comparisson: Unchanged Comment INTERPRETED BY ME Diagnostic Imaging Comments CXR--NO ACUTE PROCESS, PENDING RADIOLOGIST REVIEW Reviewed: Reviewed by Me Departure Impression Primary Impression: Chest pain Disposition: 01 HOME, SELF-CARE Condition: Improved Departure-Patient Inst. Decision time for Depature: 04:56 Referrals: LORNA VEE DO (PCP/Family) Primary Care Physician BABAK CHANEY MD FACP FAC CCDS CHRISTI DIXON MD Patient Instructions: Chest Pain (DC), Heart Healthy Diet Add. Discharge Instructions: TAKE 81 MG ASPIRIN DAILY HOME, REST AVOID ANY STRENUOUS ACTIVITY OR EXERCISE AT THIS TIME FOLLOW UP WITH DR. DIXON OR DR. CHANEY FOR FURTHER CARE--CALL TODAY TO SCHEDULE AN APPOINTMENT RETURN TO ER IF YOUR SYMPTOMS RETURN All discharge instructions reviewed with patient and/or family. Voiced understanding. BLAINE DE JESUS DO April 09, 2023 04:14
[2023-04-09 04:16] LABS: AMYLASE 58 U/L (25-125); CALCIUM 8.8 MG/DL (8.5-10.1); FIBRIN DEGRADATION PRODUCTS < 0.22 UG/ML (0.00-0.49)
[2023-04-09 04:17] LABS: GLUCOSE 117 MG/DL (70-105); TOTAL PROTEIN 6.8 GM/DL (6.4-8.2)
[2023-04-09 04:18] LABS: BILIRUBIN,TOTAL 0.3 MG/DL (0.1-1.0); CARBON DIOXIDE 16 MMOL/L (21-32)
[2023-04-09 04:20] LABS: ALKALINE PHOSPHATASE 82 U/L (40-136); CREATININE SERUM 1.12 MG/DL (0.60-1.30); GFR ESTIMATED 84
[2023-04-09 04:21] LABS: BUN/CREATININE RATIO 13
[2023-04-09 04:23] LABS: ALANINE AMINOTRANSFERASE 56 U/L (0-55)
[2023-04-09 04:24] LABS: CREATINE KINASE 105 U/L (30-200); LIPASE 46 U/L (8-78)
[2023-04-09 04:31] LABS: CREATINE KINASE MB 1.1 NG/ML (<6.6)
[2023-04-09 05:05] VITALS: BP 116/93
--- NOTE | 2023-04-09 06:09 | Diagnostic Imaging Report ---
CLINICAL INDICATIONS: Patient with chest pain. EXAM: Portable chest x-ray upright view. COMPARISON: Chest x-ray dated 05/14/2019. FINDINGS: Lungs/pleura: Lungs are clear. There is no pneumothorax. There is no pleural effusion. Mediastinum: Unremarkable. Pulmonary vasculature: Unremarkable. Heart: Unremarkable. Bones/extrathoracic soft tissue: Unremarkable. IMPRESSION: There is no radiographic evidence of acute cardiopulmonary process. Dictated by: Dictated on workstation # [id number]
== END 2023-04-09 05:07 | disposition home or self-care (01) ==
LOC: EDUNIT# 03:41 → ER 03:43
DX: R07.2 Precordial pain (principal); I45.10 Unspecified right bundle-branch block; Z87.891 Personal history of nicotine dependence; Z28.310 Unvaccinated for COVID-19
CPT/HCPCS: 36415; 71045; 80053; 82150; 82550; 82553; 83690; 83735; 83874; 83880; 84484; 85025; 85379; 85610; 85730; 93005; 93041

== ENCOUNTER → 2023-04-30 | Outpatient (CLI) | payer OTHER | LOC: CARD 09:26 | PROVIDERS: ATTEND Internal Medicine Cardiovascular Disease | DX: I34.0 Nonrheumatic mitral (valve) insufficiency (principal) | CPT/HCPCS: 93306 ==